=== PATIENT | female | born 1965 ===

== ENCOUNTER 2020-01-10 16:30 | Outpatient (REF) | payer OTHER, SELFPAY | END 2020-01-10 16:31 | disposition home or self-care (01) | LOC: HO.LAB 16:30 | PROVIDERS: PCP Internal Medicine; Visit Provider Internal Medicine | DX: Z20.828 Contact with and (suspected) exposure to other viral communicable diseases (principal) | CPT/HCPCS: 87635 ==

== ENCOUNTER 2024-03-05 08:57 | Outpatient (AMB) | payer OTHER, SELFPAY ==
[2024-03-05 09:11] VITALS: BP 122/70; PULSE 70; O2SAT 99; BMI 33.7
--- NOTE | 2024-03-05 09:11 | A.OFFVIS_ITS ---
Vital Signs 03/05/24 09:11 Height 5 ft 2 in Weight 184 lb 4.903 oz BMI 33.7 BP 122/70 Blood Pressure Location Lt brachial Position Sitting Pulse 70 Pulse Source Pulse Oximeter Pulse Oximetry (%) 99 Oxygen Delivery Method Room Air Intake Visit Reasons: arthritis/cm Intake Note: Patient is here to follow up on arthritis. Patient needs refill on Humira. Allergies morphine Allergy (Mild, Verified 03/05/24 09:16) Vomiting HPI HPI arthritis/cm: Details: She had prednisone course last visit in September or October lasting a month without benefit. She reports that she gained weight. She continues to have joint pain and swelling in her hands and wrists. Unable to hold things and open jars. She has limited range of motion in her right shoulder. Psychiatry started pregabalin with minimal benefit. She has been on combination with methotrexate and Humira for at least 3 years. [facility] were not received. [facility] Medical History (Updated 03/05/24 @ 10:03 by Sung Corrales MD) Rheumatoid arthritis delivery delivered CKD (chronic kidney disease) Arthritis Surgical History (Updated 03/05/24 @ 09:25 by Mikki Brewer CMA) History of tonsillectomy S/P cholecystectomy H/O thyroidectomy Family History (Updated 03/05/24 @ 09:27 by Mikki Brewer CMA) Father Kidney disease Mother Heart attack Advanced dementia Alzheimers disease Social History (Updated 03/05/24 @ 09:28 by Mikki Brewer CMA) Alcohol intake: current Alcohol intake frequency: holidays/special occasions only Patient Tobacco Use Status: Former Tobacco user Review of Systems Const All systems reviewed & are unremarkable except as noted in HPI and below Physical Exam Vital Signs: Last Vital Signs Pulse 70 03/05/24 09:11 BP 122/70 03/05/24 09:11 Pulse Ox 99 03/05/24 09:11 Oxygen Delivery Method Room Air 03/05/24 09:11 BMI result Body Mass Index 33.7 Const Other: General: Comfortable CVS: RRR Respiratory: clear to auscultation bilaterally. Good respiratory effort Skin: No lesions seen MSK: Tender to palpate bilateral MCPs with synovitis present. Volar subluxation of MCPs. Tender to palpate bilateral PIP knees. Right wrist is swollen and tender. Left wrist is tender on palpation. Unable to adhesive primer hands. Good range of motion of elbows. Right shoulder abduction is 120 degrees with limited internal and external rotation due to pain. Left shoulder range of motion is normal. Bilateral trochanteric bursa tenderness was found. Limited bilateral hip external rotation. Good knee flexion. No MTP tenderness on palpation. Assessment & Plan Assessment & Plan (1) Rheumatoid arthritis: Comment: Uncontrolled with double therapy with Humira and methotrexate. She failed course of prednisone. She had a side effect of increasing weight gain on prednisone. We discussed options for changing DMARD therapy. She has not been in any other DMARD therapy in the past besides Humira and methotrexate per patient. Discussed side effects, benefits and drug monitoring on Enbrel. Right shoulder pain is likely related to RA. We will obtain x-ray for further evaluation to rule out any other causes. She will return next week for right shoulder cortisone injection. Code(s): M06.9 - Rheumatoid arthritis, unspecified Category: Medical Plan: X-ray right shoulder ordered Right shoulder cortisone injection planned for next week Labs for disease and drug monitoring ordered Continue methotrexate 25 mg once weekly and folic acid 1 mg daily. After lab results are back, she will need prescription refills We will send Padma PA after lab results are back She will not continue Humira due to treatment failure Requesting medical records from [facility] Return to clinic in 3 months (2) Other mcfp (current) drug therapy: Code(s): Z79.899 - Other mcfp (current) drug therapy Category: Medical Plan: See above (3) Trochanteric bursitis of both hips: Comment: Uncontrolled pain. Code(s): M70.61 - Trochanteric bursitis, right hip; M70.62 - Trochanteric bursitis, left hip Category: Medical Plan: Can consider cortisone injection next visit Return to clinic in 1 week Orders: Orders Alanine Aminotransferase Today M06.9 - Rheumatoid arthritis, unspecified, Z79.899 - Other m[facility]p (current) drug therapy Aspartate Amino Transferase Today M06.9 - Rheumatoid arthritis, unspecified, Z79.899 - Other truck terminal manager (current) drug therapy C Reactive Protein Today M06.9 - Rheumatoid arthritis, unspecified, Z79.899 - Other truck terminal manager (current) drug therapy Cyclic Citrullinated Peptide Today M06.9 - Rheumatoid arthritis, unspecified, Z79.899 - Other [facility] (current) drug therapy Rheumatoid Factor Today M06.9 - Rheumatoid arthritis, unspecified, Z79.899 - Other [facility] (current) drug therapy T Spot TB Today M06.9 - Rheumatoid arthritis, unspecified, Z79.899 - Other [facility] (current) drug therapy Hepatitis B,C Profile Today M06.9 - Rheumatoid arthritis, unspecified, Z79.899 - Other truck terminal manager (current) drug therapy Erythrocyte Sedimentation Rate Today M06.9 - Rheumatoid arthritis, unspecified, Z79.899 - Other truck terminal manager (current) drug therapy Complete Blood Count Auto Diff Today M06.9 - Rheumatoid arthritis, unspecified, Z79.899 - Other [facility] (current) drug therapy Creatinine Today M06.9 - Rheumatoid arthritis, unspecified, Z79.899 - Other truck terminal manager (current) drug therapy XR shoulder RT min 2V Today M06.9 - Rheumatoid arthritis, unspecified, M25.511 - Pain in right shoulder Coding Level of Care Code Est Pt Level 4 (20233) Complex EM visit Add On G2211 Diagnoses Rheumatoid arthritis M06.9 Other truck terminal manager (current) drug therapy Z79.899 Trochanteric bursitis of both hips M70.61; M70.62
== END 2024-03-05 10:02 | disposition home or self-care (01) ==
PROVIDERS: PCP Internal Medicine; Visit Provider Internal Medicine Rheumatology
DX: M06.9 Rheumatoid arthritis, unspecified (principal); Z79.899 Other long term (current) drug therapy; M70.61 Trochanteric bursitis, right hip; M70.62 Trochanteric bursitis, left hip
CPT/HCPCS: 99214; G2211

== ENCOUNTER 2024-03-05 08:57 | Outpatient (REF) | payer OTHER, SELFPAY ==
[2024-03-05 11:46] LABS: MANUAL DIFF FLAG NO
[2024-03-05 12:43] LABS: Basophils Absolute Auto 0.1 X10*3/uL (0.0-0.2); Basophils Percent Auto 0.7 % (0-2); Eosinophils Absolute Auto 0.7 X10*3/uL (0.0-0.4); Eosinophils Percent Auto 9.4 % (0-4); Hematocrit 39.7 % (37.0-47.0); Hemoglobin 12.7 g/dl (12.0-16.0); Imm Gran Abs Auto 0.04 X10*3/uL (0.00-0.03); Imm Gran Pct Auto 0.6 % (0.0-0.4); Lymphocytes Absolute Auto 2.2 X10*3/uL (1.2-4.9); Lymphocytes Percent Auto 30.8 % (20-40); Mean Corpuscular Hemoglobin 32.2 pg (27.0-33.0); Mean Corpuscular Volume 100.8 fL (80.0-98.0); Mean Platelet Volume 11.7 fL (9.4-12.3); Monocytes Absolute Auto 0.5 X10*3/uL (0.1-1.2); Monocytes Percent Auto 6.5 % (2-11); Neutrophils Absolute Auto 3.8 x10*3/uL (2.0-8.3); Platelet Count 266 X10*3/uL (160-400); Red Blood Count 3.94 X10*6/uL (4.20-5.50); Red Cell Distribution Width 13.9 % (11.0-16.0); White Blood Count 7.3 X10*3/uL (4.8-10.8)
[2024-03-05 13:22] LABS: Alanine Aminotransferase 36 U/L (0-31); Aspartate Amino Transferase 34 U/L (5-31); C Reactive Protein 0.21 mg/dL (< or = 0.50); Estimated Glomerular Filt Rate 50
[2024-03-05 13:31] LABS: Erythrocyte Sedimentation Rate 28 MM/HR (0-20)
[2024-03-06 05:14] LABS: HBS Num1 0.17 mIU/mL (0-7.99); HBc Num1 0.15 S/CO (0.00-0.79); HBsAGNum1 0.42 S/CO (0.00-0.99); Hepatitis B Core Antibody Nonreactive (Nonreactive); Hepatitis B Surface Antigen Negative (Negative); ~HepC Num1 0.16 S/CO (0.00-0.79); ~Hepatitis B Surface Antibody NONREACTIVE (Nonreactive); ~Hepatitis C Antibody Nonreactive (Nonreactive)
[2024-03-07 08:33] LABS: Cyclic Citrullinated Peptide <16 UNITS
[2024-03-08 05:03] LABS: TS Negative Control Passed; TS Panel A 0; TS Panel B 0; TS Positive Control Passed; TSpotTB Negative (Negative)
== END 2024-03-05 08:58 | disposition home or self-care (01) ==
LOC: HO.XRAY 08:57
PROVIDERS: PCP Internal Medicine; Visit Provider Internal Medicine Rheumatology
DX: M06.9 Rheumatoid arthritis, unspecified (principal); M25.511 Pain in right shoulder; Z79.899 Other long term (current) drug therapy
CPT/HCPCS: 36415; 73030; 82565; 84450; 84460; 85025; 85652; 86140; 86200; 86431; 86481; 86704; 86706; 86803; 87340; 99212

== ENCOUNTER 2024-03-13 07:57 | Outpatient (AMB) | payer OTHER, SELFPAY ==
--- NOTE | 2024-03-13 08:03 | A.OFFVIS_ITS ---
Vital Signs 03/13/24 08:05 Height 5 ft 2 in Weight 187 lb 6.287 oz BMI 34.3 BP 120/70 Blood Pressure Location Lt brachial Position Sitting Pulse 75 Pulse Source Pulse Oximeter Pulse Oximetry (%) 98 Oxygen Delivery Method Room Air Intake Visit Reasons: Follow Up 1 week/CM Intake Note: Patient presents for follow up for injection today. Allergies morphine Allergy (Mild, Verified 03/13/24 08:06) Vomiting HPI HPI Follow Up 1 week/CM: Details: She continues to have right shoulder pain and bilateral hip pain. Right hip pain is worse than (. She is having a difficulty time lifting her arm and functioning with it. [facility] Medical History (Updated 03/13/24 @ 20:56 by Sung Corrales MD) Rheumatoid arthritis delivery delivered CKD (chronic kidney disease) Arthritis Surgical History (Updated 03/05/24 @ 09:25 by Mikki Brewer CMA) History of tonsillectomy S/P cholecystectomy H/O thyroidectomy Family History (Updated 03/05/24 @ 09:27 by Mikki Brewer CMA) Father Kidney disease Mother Heart attack Advanced dementia Alzheimers disease Social History (Updated 03/05/24 @ 09:28 by Mikki Brewer CMA) Alcohol intake: current Alcohol intake frequency: holidays/special occasions only Patient Tobacco Use Status: Former Tobacco user Physical Exam Vital Signs: Last Vital Signs Pulse 75 03/13/24 08:05 BP 120/70 03/13/24 08:05 Pulse Ox 98 03/13/24 08:05 Oxygen Delivery Method Room Air 03/13/24 08:05 BMI result Body Mass Index 34.3 Const Other: General: Comfortable Skin: No lesions seen MSK: Right shoulder abduction is 120 degrees with limited internal and external rotation due to pain. Left shoulder range of motion is normal. Bilateral trochanteric bursa tenderness was found. Limited bilateral hip external rotation. Office Procedures AMB Joint Injection/Aspiration Joint Injection/Aspiration Primary Site: right shoulder Prep: site was prepped using aseptic technique Injected: 40 mg of, Kenalog, with 1 mL of and 1% plain lidocaine Procedure: The patient tolerated the procedure well Coding 27238 - Large joint Additional procedure code (CPT) needed (Modifier for 2 procedures needed.) AMB Joint Injection/Aspiration Joint Injection/Aspiration Details: Right trochanteric bursa Prep: site was prepped using aseptic technique Injected: 40 mg of, Kenalog, with 1 mL of and 1% plain lidocaine Procedure: The patient tolerated the procedure well Coding 52065 - Large joint Additional procedure code (CPT) needed (Modifier for 2 procedures needed) Office Meds Kenalog 40 mg/mL suspension for injection Performing Provider: Sung Corrales MD Performing Location: [facility] Administered by: Sung Corrales MD on 03/13/24 20:39 Dose Route Admin Location Dispensed Lot Number Expiration Date [facility] [place] Paradichlorobenzene Machine Operator 40 mg intra-articular 1 mL AP [id number] [employer] lidocaine (PF) 10 mg/mL (1 %) injection solution Performing Provider: Sung Corrales MD Performing Location: [facility] Administered by: Sung Corrales MD on 03/13/24 20:39 Dose Route Admin Location Dispensed Lot Number Expiration Date [facility] [place] Paradichlorobenzene Machine Operator 10 mg Infiltration 2 mL [id number] [facility] Kenalog 40 mg/mL suspension for injection Performing Provider: Sung Corrales MD Performing Location: [facility] Administered by: Sung Corrales MD on 03/13/24 20:42 Dose Route Admin Location Dispensed Lot Number Expiration Date [facility] [place] Paradichlorobenzene Machine Operator 40 mg intrabursal 1 mL AP [id number] [employer] lidocaine (PF) 10 mg/mL (1 %) injection solution Performing Provider: Sung Corrales MD Performing Location: [facility] [place] Administered by: Sung Corrales MD on 03/13/24 20:42 Dose Route Admin Location Dispensed Lot Number Expiration Date [facility] [place] Paradichlorobenzene Machine Operator 10 mg Infiltration 2 mL [id number] [facility] Assessment & Plan Assessment & Plan (1) Shoulder pain, right: Comment: Likely due to RA flare. X-ray results are not available. Code(s): M25.511 - Pain in right shoulder Category: Medical Qualifiers: Chronicity: chronic Qualified Code(s): M25.511 - Pain in right shou lder; G89.29 - Other chronic pain Plan: Patient received right shoulder cortisone injection this visit Return to clinic in 3 months (2) Trochanteric bursitis of both hips: Comment: Uncontrolled pain. Right trochanteric bursa pain is greater than left Code(s): M70.61 - Trochanteric bursitis, right hip; M70.62 - Trochanteric bursitis, left hip Category: Medical Plan: She received right trochanteric bursa cortisone injection this visit Return to clinic in 3 months (3) Rheumatoid arthritis: Comment: Seropositive. Rheumatoid factor 36. She has been on methotrexate since 01/20/2022 till present. In 2013 she did well on hydroxychloroquine, methotrexate and Humira. She has had treatment failure after reintroducing Humira. Rheumatoid arthritis is uncontrolled at this time with Humira and methotrexate. She failed course of prednisone. She had a side effect of i ncreasing weight gain on prednisone. We discussed options for changing DMARD therapy. Discussed side effects, benefits and drug monitoring on Padma. Right shoulder pain is likely related to RA. Recent labs revealed mild transaminitis in setting of Humira use when compared to prior labs. She has discontinued Humira. Code(s): M06.9 - Rheumatoid arthritis, unspecified Category: Medical Plan: Right shoulder cortisone injection today Labs for disease and drug monitoring ordered last visit Continue methotrexate 25 mg once weekly and folic acid 1 mg daily. We will send Padma MIRANDA after lab results are back. Patient is having liver panel checked March 19. She will not continue Humira Return to clinic in 3 months (4) Other alf (current) drug therapy: Code(s): Z79.899 - Other alf (current) drug therapy Category: Medical Plan: See above Orders: Orders AMB Joint Injection/Aspiration Today M25.511 - Pain in right shoulder AMB Joint Injection/Aspiration Today M70.61 - Trochanteric bursitis, right hip, M70.62 - Trochanteric bursitis, left hip Medications: New folic acid 1 mg PO DAILY 90 tabs 3RF Changed From methotrexate sodium 10 pills each week, every . 2.5 mg PO QWEEK To methotrexate sodium 10 pills each week, every . Do labs on March 19 to check liver function at [facility]. 25 mg (10 x 2.5 mg) PO QWEEK 40 tabs 0RF Coding Level of Care Code Est Pt Level 3 (78897) Complex EM visit Add On G2211 Diagnoses Chronic right shoulder pain M25.511; G89.29 Chronicity: chronic Trochanteric bursitis of both hips M70.61; M70.62 Rheumatoid arthritis M06.9 Other lobsterman (current) drug therapy Z79.899 CPT Codes Coding - 54106 Large joint: 73931 - Large joint ([id number]) Coding - 02443 Large joint: 12421 - Large joint ([id number])
[2024-03-13 08:05] VITALS: BP 120/70; PULSE 75; O2SAT 98; BMI 34.3
== END 2024-03-13 08:48 | disposition home or self-care (01) ==
PROVIDERS: PCP Internal Medicine; Visit Provider Internal Medicine Rheumatology
DX: M25.511 Pain in right shoulder (principal); G89.29 Other chronic pain; M70.61 Trochanteric bursitis, right hip; M70.62 Trochanteric bursitis, left hip; M06.9 Rheumatoid arthritis, unspecified; Z79.899 Other long term (current) drug therapy
CPT/HCPCS: 20610; 99213; G2211

== ENCOUNTER → 2024-03-13 07:57 | Outpatient (BNVA) | payer OTHER, SELFPAY | PROVIDERS: PCP Internal Medicine; Visit Provider Internal Medicine Rheumatology | DX: M25.511 Pain in right shoulder (principal); M70.61 Trochanteric bursitis, right hip; M70.62 Trochanteric bursitis, left hip; M06.9 Rheumatoid arthritis, unspecified; G89.29 Other chronic pain; Z79.899 Other long term (current) drug therapy | CPT/HCPCS: 20610; 99212; J2003; J3300 ==

== ENCOUNTER → 2024-06-04 09:34 | Outpatient (BNVA) | payer OTHER, SELFPAY | PROVIDERS: PCP Internal Medicine | DX: Z76.89 Persons encountering health services in other specified circumstances (principal) ==

== ENCOUNTER 2024-06-05 09:25 | Outpatient (REF) | payer OTHER, SELFPAY ==
--- OUTSIDE RECORDS SUMMARY | 2024-06-05 13:25 | XMS_ITS | Clinical Summary ---
Author Organization [facility] Address [address] [place] [address] Phone Care Team Providers Care Lubrication Worker Name Role Phone Sabas Zepeda MD Primary [...] 0 Refills, Maintenance, 11/02/23 2:42:00 PM EDT, [facility]/pharmacy #[id number], 158, cm, 11/02/23 12:56:00 EDT, Height, [...] 05/24/2024 10:40 AM EST Consult Gastroenterology - [place] [address] [facility] 175 [facility] [address] [place] [phone] Maverick Shaffer PA Heartburn (Primary Dx); Gastroesophageal reflux disease without esophagitis; Atypical chest pain; Constipation, unspecified constipation type 04/29/2024 5:31 PM EST - 04/29/2024 8:24 PM EST Emergency [facility] Emergency [address] [place] [address] Valdez Starks MD Chest wall [...] Surgery Date Site/Laterality Comments CHOLECYSTECTOMY 1996 PROCEDURE: [place] CHOLECYSTECTOMY TONSILLECTOMY PROCEDURE: HISTORICAL TONSILLECTOMY SECTION PROCEDURE: HISTORICAL ; COMMENT: x3 TUBAL LIGATION PROCEDURE: HISTORICAL TUBAL LIGATION COLONOSCOPY 10/30/2015 PROCEDURE: HISTORICAL COLONOSCOPY; COMMENT: adenoma; repeat in 5 yrs OTHER SURGICAL HISTORY 10/25/2018 Left PROCEDURE: BUNION SURGERY,REMOVE JOINT/IMPLANT; COMMENT: left foot varghese karen bunionectomy OTHER SURGICAL HISTORY 12/04/2020 PROCEDURE: [place] THYROIDECTOMY TOTAL/COMPLETE Medical History Medical History Date [...] Office Visit Nephrology - [facility] [address] [place] [phone] Seng Fernandez MD [address] [place] [address] Health Maintenance Due Date Last Done Comments [...] LAB MICROBIOLOGY METHOD 04/29/2024 8:17 PM EST [facility] Influenza A PCR Not Detected Not Detected LAB MICROBIOLOGY METHOD 04/29/2024 8:17 PM EST [facility] Influenza B PCR Not Detected Not Detected LAB MICROBIOLOGY METHOD 04/29/2024 8:[address] [facility] Coronavirus 229E Not Detected Not Detected LAB MICROBIOLOGY METHOD 04/29/2024 8:17 PM EST [facility] Coronavirus HKU1 Not Detected Not Detected LAB MICROBIOLOGY METHOD 04/29/2024 8:[address] [facility] Coronavirus OC43 Not Detected Not Detected LAB MICROBIOLOGY METHOD 04/29/2024 8:[address] [facility] Coronavirus NL63 Not Detected Not Detected LAB MICROBIOLOGY METHOD 04/29/2024 8:[address] [facility] Parainfluenza Virus 1 Not Detected Not Detected LAB MICROBIOLOGY METHOD 04/29/2024 8:[address] [facility] Parainfluenza Virus 2 Not Detected Not Detected LAB MICROBIOLOGY METHOD 04/29/2024 8:[address] [facility] Parainfluenza Virus 3 Not Detected Not Detected LAB MICROBIOLOGY METHOD 04/29/2024 8:[address] [facility] Parainfluenza Virus 4 Not Detected Not Detected LAB MICROBIOLOGY METHOD 04/29/2024 8:[address] [facility] RSV PCR Not Detected Not Detected LAB MICROBIOLOGY METHOD 04/29/2024 8:[address] [facility] Human Metapneumovirus A and B Not Detected Not Detected LAB MICROBIOLOGY METHOD 04/29/2024 8:[address] [facility] Rhinovirus/Entero virus Not Detected Not Detected LAB MICROBIOLOGY METHOD 04/29/2024 8:[address] [facility] Bordetella pertussis Not Detected Not Detected LAB MICROBIOLOGY METHOD 04/29/2024 8:[address] [facility] Bordetella parapertussis Not Detected Not Detected LAB MICROBIOLOGY METHOD 04/29/2024 8:[address] [facility] Mycoplasma pneumo by PCR Not Detected Not Detected LAB MICROBIOLOGY METHOD 04/29/2024 8:[address] [facility] Chlamydia pneumoniae Not Detected Not Detected LAB MICROBIOLOGY METHOD 04/29/2024 8:17 PM EST [facility] SARS COV-2 Not Detected Not Detected LAB MICROBIOLOGY METHOD 04/29/2024 8:17 PM EST [facility] Swab Nasopharyngeal structure / Unknown Non-blood Collection / Unknown 04/29/2024 6:08 PM EST 04/29/2024 7:00 PM EST [facility] - 04/29/2024 8:17 PM EST Testing was performed using the [employer] Respiratory Pathogen PCR Assay. All results must [...] detection. Valdez Starks MD LAB MICROBIOLOGY - [facility] Final Result [facility] [address] [place] [address], [place] [phone] * Troponin I high sensitivity (04/29/2024 3:18 PM EST) Only the most recent of2 resultswithin the time period is included. Pathologist [facility] High Sensitivity Troponin I 4 <=54 ng/L LAB CHEMISTRY METHOD 04/29/2024 3:52 PM EST [facility] Blood Venous blood specimen / Unknown Venipuncture / Unknown 04/29/2024 3:18 PM EST 04/29/2024 3:23 PM EST [facility] - 04/29/2024 3:52 PM EST High levels of biotin in samples may falsely decrease hsTroponin values. ??Use caution when interpreting hsTroponin results in patients taking biotin who exhibit renal impairment (eGFR <60) or in patients taking more than 20 mg/day of biotin. Natalia Belle DO LAB BLOOD ORDERABLES Karmen l Result [facility] [address] [place] [address], [place] [phone] * XR Chest 2 Views (04/29/2024 2:51 PM EST) Anatomical Region Laterality Modality Body Radiographic Naomie ging 04/29/2024 3:04 PM EST Impressions 04/29/2024 3:05 PM EST Impression: No active pulmonary process identified. No significant change. Telerad PA ([id number]) -------- FINAL REPORT -------- Dictated By: Darlin Casey Dictated Date: 04/29/2024 15:04 ET Assigned Physician: Darlin Casey Reviewed and Electronically Signed By: Darlin Casey Signed Date: 04/29/2024 15:05 ET Workstation ID: [id number] Transcribed By: Self Edit Transcribed Date: 04/29/2024 [...] process identified. No significant change. Telerad PA ([id number]) -------- FINAL REPORT -------- Dictated By: Darlin Casey Dictated Date: 04/29/2024 15:04 ET Assigned Physician: Darlin Casey Reviewed and Electronically Signed By: Darlin Casey Signed Date: 04/29/2024 15:05 ET Workstation ID: [id number] Transcribed By: Self Edit Transcribed Date: 04/29/2024 15:04 ET us Natalia Belle DO IMG XR PROCEDURES Final R esult * (ABNORMAL) CBC auto differential (04/29/2024 12:11 PM EST) Pathologist [facility] WBC 7.5 4.8 - 10.8 K/mcL LAB HEMETOLOGY METHOD 04/29/2024 12:[address] [facility] RBC 3.80 3.80 - 4.80 M/mcL LAB HEMETOLOGY METHOD 04/29/2024 12:[address] [facility] Hemoglobin 12.4 11.5 - 16.0 g/dL LAB HEMETOLOGY METHOD 04/29/2024 12:[address] [facility] Hematocrit 38.9 35.0 - 47.0 % LAB HEMETOLOGY METHOD 04/29/2024 12:[address] [facility] MCV 101.3(H) 79.0 - 98.0 FL LAB HEMETOLOGY METHOD 04/29/2024 12:[address] [facility] MCH 32.3(H) 27.0 - 32.0 pcg LAB HEMETOLOGY METHOD 04/29/2024 12:[address] [facility] MCHC 31.9(L) 32.0 - 37.0 g/dL LAB HEMETOLOGY METHOD 04/29/2024 12:[address] [facility] RDW 14.5 11.0 - 15.0 % LAB HEMETOLOGY METHOD 04/29/2024 12:[address] [facility] Platelets 233 130 - 400 K/mcL LAB HEMETOLOGY METHOD 04/29/2024 12:56 PM EST [facility] MPV 12.4(H) 7.0 - 11.0 FL LAB HEMETOLOGY METHOD 04/29/2024 12:[address] [facility] NRBC 0.0 <1.0 % LAB HEMETOLOGY METHOD 04/29/2024 12:[address] [facility] NRBC Absolute 0.00 <0.10 K/mcL LAB HEMETOLOGY METHOD 04/29/2024 12:[address] [facility] Neutrophils Relative 64.9 % LAB HEMETOLOGY METHOD 04/29/2024 12:[address] [facility] Lymphocytes Relative 25.5 % LAB HEMETOLOGY METHOD 04/29/2024 12:[address] [facility] Monocytes Relative 6.4 % LAB HEMETOLOGY METHOD 04/29/2024 12:[address] [facility] Eosinophils Relative 2.3 % LAB HEMETOLOGY METHOD 04/29/2024 12:[address] [facility] Basophils Relative 0.5 % LAB HEMETOLOGY METHOD 04/29/2024 12:[address] [facility] Immature Granulocytes Relative 0.4 % LAB HEMETOLOGY METHOD 04/29/2024 12:[address] [facility] Neutrophils Absolute 4.89 1.50 - 7.00 K/mcL LAB HEMETOLOGY METHOD 04/29/2024 12:[address] [facility] Lymphocytes Absolute 1.92 1.00 - 5.00 K/mcL LAB HEMETOLOGY METHOD 04/29/2024 12:[address] [facility] Monocytes Absolute 0.48 0.20 - 1.00 K/mcL LAB HEMETOLOGY METHOD 04/29/2024 12:[address] [facility] Eosinophils Absolute 0.17 0.00 - 0.50 K/mcL LAB HEMETOLOGY METHOD 04/29/2024 12:[address] [facility] Basophils Absolute 0.04 0.00 - 0.20 K/[facility] LAB HEMETOLOGY METHOD 04/29/2024 12:56 PM EST [facility] Immature Granulocytes Absolute 0.03 0.00 - 0.03 K/[facility] LAB HEMETOLOGY METHOD 04/29/2024 12:56 PM EST [facility] Blood Venous blood specimen / Unknown Venipuncture / Unknown 04/29/2024 12:11 PM EST 04/29/2024 12:42 PM EST us Natalia Belle LAB BLOOD ORDERABLES Karmen l Result [facility] [address] [place] [address], [place] [phone] * B-type natriuretic peptide (04/29/2024 12:11 PM EST) BNP 19 <=100 pcg/mL LAB CHEMISTRY METHOD 04/29/2024 1:36 PM EST [facility] Blood Venous blood specimen / Unknown Venipuncture / Unknown 04/29/2024 12:11 PM EST 04/29/2024 12:41 PM EST us Natalia Belle LAB BLOOD ORDERABLES Karmen l Result [facility] [address] [place] [address], [place] [phone] * Magnesium (04/29/2024 12:11 PM EST) Magnesium 2.0 1.9 - 2.6 mg/dL LAB CHEMISTRY METHOD 04/29/2024 1:13 PM EST [facility] Blood Venous blood specimen / Unknown Venipuncture / Unknown 04/29/2024 12:11 PM EST 04/29/2024 12:42 PM EST us Natalia Belle LAB BLOOD ORDERABLES Karmen l Result Performing Organization Address City/[facility]/ZIP Co de Phone Number [facility] [address] [place] [address], [place] [phone] * Lipase (04/29/2024 12:11 PM EST) Pathologist [facility] Lipase 49 13 - 75 unit/L LAB CHEMISTRY METHOD 04/29/2024 1:[address] [facility] Blood Venous blood specimen / Unknown Venipuncture / Unknown 04/29/2024 12:11 PM EST 04/29/2024 12:42 PM EST [facility] LAB BLOOD ORDERABLES Karmen l Result Performing Organization Address [facility]/ZIP Co de Phone Number [facility] [address] [place] [address], [place] [phone] * Comprehensive metabolic panel (04/29/2024 12:11 PM EST) [facility] Sodium 139 133 - 145 mmol/L LAB CHEMISTRY METHOD 04/29/2024 1:[address] [facility] Potassium 4.6 3.5 - 5.5 mmol/L LAB CHEMISTRY METHOD 04/29/2024 1:[address] [facility] Chloride 107 96 - 110 mmol/L LAB CHEMISTRY METHOD 04/29/2024 1:[address] [facility] CO2 28 21 - 32 mmol/L LAB CHEMISTRY METHOD 04/29/2024 1:[address] [facility] Anion Gap 4 3 - 11 LAB CHEMISTRY METHOD 04/29/2024 1:[address] [facility] Glucose 97 70 - 100 mg/dL LAB CHEMISTRY METHOD 04/29/2024 1:[address] [facility] BUN 16 5 - 25 mg/dL LAB CHEMISTRY METHOD 04/29/2024 1:[address] [facility] Creatinine 1.08 0.50 - 1.10 mg/dL LAB CHEMISTRY METHOD 04/29/2024 1:[address] [facility] eGFR 60 >=60 mL/min/1. 73m2 LAB CHEMISTRY METHOD 04/29/2024 1:[address] [facility] Comment:Calculation based on the??Chronic Kidney Disease Epidemiology Collaboration (CKD-EPI) equation refit??without adjustment for race. BUN/Creatinine Ratio 14.8 LAB CHEMISTRY METHOD 04/29/2024 1:[address] [facility] Calcium 9.9 8.5 - 10.5 mg/dL LAB CHEMISTRY METHOD 04/29/2024 1:[address] [facility] AST (SGOT) 29 10 - 42 unit/L LAB CHEMISTRY METHOD 04/29/2024 1:[address] [facility] ALT (SGPT) 38 10 - 60 unit/L LAB CHEMISTRY METHOD 04/29/2024 1:[address] [facility] Alkaline Phosphatase 63 42 - 121 unit/L LAB CHEMISTRY METHOD 04/29/2024 1:[address] [facility] Total Protein 7.2 6.0 - 8.0 g/dL LAB CHEMISTRY METHOD 04/29/2024 1:[address] [facility] Albumin 4.0 3.2 - 5.0 g/dL LAB CHEMISTRY METHOD 04/29/2024 1:[address] [facility] Total Bilirubin 0.4 0.0 - 1.4 mg/dL LAB CHEMISTRY METHOD 04/29/2024 1:[address] [facility] Blood Venous blood specimen / Unknown Venipuncture / Unknown 04/29/2024 12:11 PM EST 04/29/2024 12:42 PM EST us Natalia Belle DO LAB BLOOD ORDERABLES Karmen l Result [facility] [address] [place] [address], [place] [phone] * ECG 12 lead (04/29/2024 12:00 PM EST) Ventricular Rate ECG 61 BPM GEMUSE Atrial Rate 61 BPM GEMUSE P-R Interval 134 ms GEMUSE QRS Duration 68 ms GEMUSE Q-T Interval 412 ms GEMUSE QTc 414 ms GEMUSE P Wave [place] 63 degrees GEMUSE R [place] 35 degrees GEMUSE T [place] 42 degrees GEMUSE ECG Interpretation Normal sinus [...] PROCEDURE S Final Result * Colonoscopy (06/15/2021) [facility] Colonoscopy No interpretation , abstracted Anatomical Region Laterality Modality Other Result [facility] Provider HEALTH MAINTENANCE Final Result * Lipid panel (06/14/2017) [facility] LDL/HDL Ratio 2 0 - 4 Triglycerides 109 0 - 150 mg/dL Cholesterol 172 0 - 200 mg/dL HDL 95 >=40 mg/dL LDL Cholesterol 55 0 - 100 mg/dL Blood Venous blood specimen / Unknown Result [facility] Historical Provider LAB BLOOD ORDERABLES Karmen l Result * Hepatitis C Screening (01/17/2017) [facility] Hepatitis C Screening Abstracted Result [facility] Provider HEALTH MAINTENANCE Final Result * Cervical Cancer Screening: HPV (12/01/2014) [facility] Cervical Cancer Screening: HPV Negative, Abstracted Result [facility] Provider HEALTH MAINTENANCE Final Result * HIV Screening (11/18/2014) [facility] HIV Screening Abstracted [facility] Provider HEALTH MAINTENANCE Final Result from Last 3 Months or Most Recently Relevant to Health Maintenance Insurance [employer] Member Subscriber Plan / Payer (Ef fective 2023-Present) Name:Roque, Angle Relation to Subscriber:Self Name:Angle Roque Payer ID:[id number] Group ID:[id number] Type:Not on file Address: [place] [address] [address] Care Teams Lubrication Worker Relationship Specialty Start Date End Date Sabas Zepeda MD [address] [place] [id number] PCP - General Internal Medicine 04/29/24
--- OUTSIDE RECORDS SUMMARY | 2024-06-05 13:25 | XMS_ITS | Encounter Summary ---
Author Organization [facility] Address [address] [place] [address] Care Team Providers Care Legal Executive Assistant Name Role Phone Sabas Zepeda MD Primary Care Provider [phone] Reason for Visit * Reason Comments GERD Constipation Encounter Details Date Type Department Care Team (Late st Contact Info) Description 05/24/2024 10:40 AM EST Consult Gastroenterology - [place] [address] [place] [phone] Maverick Shaffer PA [address] [place] [address] Heartburn (Primary Dx); Gastroesophageal reflux disease without [...] through Care Everywhere. * Chest Pain: Musculoskeletal (Bhutanese) * Constipation (Bhutanese) * Acid-Reducing Medicines: General Info (Bhutanese) * GERD (Bhutanese) * Dyspepsia (Bhutanese) documented in this encounter Ordered Prescriptions Prescription [...] process identified. No significant change. Telerad PA ([id number]) -------- FINAL REPORT -------- Dictated By: Darlin Casey Dictated Date: 04/29/2024 15:04 ET Assigned Physician: Darlin Casey Reviewed and Electronically Signed By: Darlin Casey Signed Date: 04/29/2024 15:05 ET Workstation ID: [id number] Transcribed By: Self Edit Transcribed Date: 04/29/2024 [...] the colonoscopy in 2026. She has tried [id number] medications which are minimally helpful and have [...] Visit Nephrology - [place] [address] [place] [address] Seng Fernandez MD [address] [place] [address] documented as of this encounter Visit Diagnoses [...] 11/02/2023 added in this encounter Care Teams Legal Executive Assistant Relationship Specialty Start Date End Date Sabas Zepeda MD [address] [place] [address] PCP - General Internal Medicine 04/29/24 documented as of this encounter
[2024-06-05 17:55] LABS: MANUAL DIFF FLAG NO
[2024-06-05 18:20] LABS: Alanine Aminotransferase 35 U/L (0-31); Albumin Level 4.2 g/dL (3.5-5.0); Aspartate Amino Transferase 30 U/L (5-31); Bilirubin Direct 0.1 mg/dL (0.0-0.5); Bilirubin Total 0.6 mg/dL (0.0-1.0); C Reactive Protein 0.11 mg/dL (< or = 0.50); Estimated Glomerular Filt Rate 56; Total Protein 7.5 g/dL (6.5-8.0)
[2024-06-05 18:42] LABS: Alkaline Phosphatase 60 U/L (39-117)
[2024-06-05 18:45] LABS: Basophils Absolute Auto 0.1 X10*3/uL (0.0-0.2); Basophils Percent Auto 0.7 % (0-2); Eosinophils Absolute Auto 0.4 X10*3/uL (0.0-0.4); Eosinophils Percent Auto 6.2 % (0-4); Hematocrit 39.5 % (37.0-47.0); Hemoglobin 12.5 g/dl (12.0-16.0); Imm Gran Abs Auto 0.02 X10*3/uL (0.00-0.03); Imm Gran Pct Auto 0.3 % (0.0-0.4); Lymphocytes Absolute Auto 2.4 X10*3/uL (1.2-4.9); Lymphocytes Percent Auto 34.2 % (20-40); Mean Corpuscular HGB Conc 31.6 g/dl (31.0-35.0); Mean Corpuscular Hemoglobin 31.4 pg (27.0-33.0); Mean Corpuscular Volume 99.2 fL (80.0-98.0); Mean Platelet Volume 12.6 fL (9.4-12.3); Monocytes Absolute Auto 0.4 X10*3/uL (0.1-1.2); Monocytes Percent Auto 6.2 % (2-11); Neutrophils Absolute Auto 3.7 x10*3/uL (2.0-8.3); Neutrophils Percent Auto 52.4 % (45-73); Platelet Count 221 X10*3/uL (160-400); Red Blood Count 3.98 X10*6/uL (4.20-5.50); Red Cell Distribution Width 13.5 % (11.0-16.0); White Blood Count 7.1 X10*3/uL (4.8-10.8)
== END 2024-06-05 09:26 | disposition home or self-care (01) ==
LOC: HO.HKASLDS 09:25
PROVIDERS: PCP Internal Medicine; Visit Provider Internal Medicine Rheumatology
DX: M05.79 Rheumatoid arthritis with rheumatoid factor of multiple sites without organ or systems involvement (principal); M19.011 Primary osteoarthritis, right shoulder; R74.01 Elevation of levels of liver transaminase levels; Z79.60 Long term (current) use of unspecified immunomodulators and immunosuppressants; Z79.899 Other long term (current) drug therapy
CPT/HCPCS: 36415; 80076; 82565; 85025; 86140; 99212

== ENCOUNTER 2024-06-05 09:25 | Outpatient (AMB) | payer OTHER, SELFPAY ==
--- NOTE | 2024-06-05 10:01 | A.OFFVIS_ITS ---
Vital Signs 06/05/24 10:02 Height 5 ft 2 in Weight 192 lb 3.889 oz BMI 35.2 BP 110/78 Blood Pressure Location Lt brachial Position Sitting Pulse 57 Pulse Source Pulse Oximeter Pulse Oximetry (%) 98 Oxygen Delivery Method Room Air Intake Visit Reasons: Follow Up 3mo Intake Note: Patient is here to follow up on arthritis. Allergies morphine Allergy (Mild, Verified 06/05/24 10:03) Vomiting HPI HPI Follow Up 3mo: Details: She had Enbrel 1st injection yesterday. At home she developed 10/10 abdominal pain, which kept her up at night. At this time her abdominal pain is 5/10. She has not self medicated. She localizes pain to the epigastrium. Denies fever, dyspnea, swelling of tongue, throat closing symptoms, rash and worsening joint pain. She continues to have right shoulder pain. Cortisone injection did not alleviate right shoulder pain. Pain occurs with activity. She continues to have swelling in her hands. She goes to the gym regularly as she wants to try to maintain an exercise routine. [facility] Medical History (Updated 06/08/24 @ 13:19 by Sung Corrales MD) Rheumatoid arthritis delivery delivered CKD (chronic kidney disease) Arthritis Surgical History (Updated 03/05/24 @ 09:25 by Mikki Brewer CMA) History of tonsillectomy S/P cholecystectomy H/O thyroidectomy Family History (Updated 03/05/24 @ 09:27 by Mikki Brewer CMA) Father Kidney disease Mother Heart attack Advanced dementia Alzheimers disease Social History (Updated 03/05/24 @ 09:28 by Mikki Brewer CMA) Alcohol intake: current Alcohol intake frequency: holidays/special occasions only Patient Tobacco Use Status: Former Tobacco user Review of Systems Const All systems reviewed & are unremarkable except as noted in HPI and below Physical Exam Vital Signs: Last Vital Signs Pulse 57 06/05/24 10:02 BP 110/78 06/05/24 10:02 Pulse Ox 98 06/05/24 10:02 Oxygen Delivery Method Room Air 06/05/24 10:02 BMI result Body Mass Index 35.2 Const Other: General: Comfortable Skin: No lesions seen MSK: Localized tenderness to right anterior shoulder. Right shoulder abduction is 160 degrees with improved internal and external rotation. Left shoulder range of motion is normal. Bilateral trochanteric bursa tenderness was found. Limited bilateral hip external rotation. Knee flexion 90 degrees bilateral knees. Synovitis 2-4th MCP with tenderness on palpation, tenderness of right hand PIP with synovitis right 2nd PIP. Synovitis left 2nd to 3rd MCP with tenderness on palpation. Tender wrists, shoulders, ankles and MTPs. Assessment & Plan Assessment & Plan (1) Rheumatoid arthritis: Comment: Rheumatoid arthritis is uncontrolled at this time. First injection of Enbrel has caused side effect of abdominal pain. We discussed risk of possible worsening symptoms if she has another injection of Enbrel including anaphylaxis. At this time I do not recommend proceeding with Enbrel. We discussed options for DMARD therapy. I discussed treatment with Orencia, side effects, benefits and drug monitoring. Rheumatology history: Seropositive (Rheumatoid factor 36). She has been on methotrexate since 01/20/2022 till present. In 2013 she did well on hydroxychloroquine, methotrexate and Humira. She has had treatment failure after reintroducing Humira. She failed course of prednisone and reports that she had side effect of weight gain. Enbrel caused severe abdominal pain 06/04/2024. Code(s): M06.9 - Rheumatoid arthritis, unspecified Category: Medical Qualifiers: Rheumatoid arthritis location: multiple sites Rheumatoid factor presence: with rheumatoid factor Qualified Code(s): M05.79 - Rheumatoid arthritis with rheumatoid factor of multiple sites without organ or systems involvement Plan: Labs for disease and drug monitoring ordered after drug reaction Continue methotrexate 25 mg once weekly and folic acid 1 mg daily. After lab results are back, I will start PA process for Orencia IV induction (750mg week 0, 2, 4) followed by maintenance with Orencia subcutaneous injection (125mg SC 24 hours after completing induction dose, followed by 125 mg once weekly thereafter) for maximal benefit from Orencia treatment as patient has had uncontrolled inflammatory arthritis for a very long time. She will need to be scheduled for nurse teaching visit 24 hours after last induction dose for nurse teaching and administration of 1st SC dose in office. She will need labs for drug monitoring 4 weeks after starting Orencia: CBC, creatinine, AST, ALT Return to clinic in 3 months (2) Arthritis of right acromioclavicular joint: Comment: Chronic right shoulder pain with range of motion. AC joint arthritis is contributing to right shoulder pain as revealed on x-ray. She did not have any benefit with right glenohumeral joint intra-articular cortisone injection from last visit. We discussed conservative management. Code(s): M19.011 - Primary osteoarthritis, right shoulder Category: Medical Plan: PT ordered Return to clinic in 3 months (3) Other rodent exterminator (current) drug therapy: Code(s): Z79.899 - Other usp (current) drug therapy Category: Medical Plan: See above Orders: Orders PT Evaluation and Treatment 06/05/24 M19.011 - Primary osteoarthritis, right shoulder Alanine Aminotransferase 06/05/24 Z79.60 - nursing home (current) use of unspecified immunomodulators and immunosuppressants Aspartate Amino Transferase 06/05/24 Z79.60 - nursing home (current) use of unspecified immunomodulators and immunosuppressants Complete Blood Count Auto Diff 06/05/24 Z79.60 - intermediate manager (current) use of unspecified immunomodulators and immunosuppressants Creatinine 06/05/24 Z79.60 - nursing home (current) use of unspecified immunomodulators and immunosuppressants C Reactive Protein 06/05/24 Z79.899 - Other rodent exterminator (current) drug therapy Coding Level of Care Code Est Pt Level 4 (74672) Complex EM visit Add On G2211 Diagnoses Rheumatoid arthritis involving multiple sites with positive rheumatoid factor M05.79 Rheumatoid arthritis location: multiple sites Rheumatoid factor presence: with rheumatoid factor Arthritis of right acromioclavicular joint M19.011 Other usp (current) drug therapy Z79.899
[2024-06-05 10:02] VITALS: BP 110/78; PULSE 57; O2SAT 98; BMI 35.2
--- OUTSIDE RECORDS SUMMARY | 2024-06-05 10:33 | XMS_ITS | Clinical Summary ---
Author Organization [facility] Address [address] [place] [address] Phone Care Team Providers [facility] Former Name Role Phone Sabas Zepeda MD Primary Care Provider Allergies Active Allergy Reactions Criticality Noted Date Comments Egg Nausea And Vomiting,GI intolerance 0 05/24/2024 Morphine Wheezing 11/18/2014 Shrimp Anaphylaxis,Shortness of breath High 05/05 Medications ondansetron (ZOFRAN) 4 mg tablet TAKE 1 TABLET BY MOUTH EVERY 8 HOURS NEEDED FOR NAUSEA 12/05/19 21 Active clonazePAM (KlonoPIN) 0.5 mg tablet TAKE 1 TABLET BY MOUTH TWICE A DAY NEEDED 12/24/19 21 Active cetirizine (ZyrTEC) 10 mg tablet Take 1 tablet by mouth daily. 02/09/20 21 Active levothyroxine (SYNTHROID, LEVOTHROID) 100 mcg tablet TAKE 1 TABLET BY MOUTH EVERY DAY 05/09/19 23 Active cholecalcifer ol (VITAMIN D-3) 25 mcg (1,000 unit) tablet Take 2 Tablets by mouth daily. 12/01/19 21 Active albuterol HFA (Ventolin HFA) 90 mcg/actuation inhaler INHALE 2 PUFFS INTO THE LUNGS EVERY 6 HOURS NEEDED FOR COUGH OR WHEEZING. 09/11/19 21 Active fluticasone propionate (FLONASE) 50 mcg/actuation nasal spray SHAKE LIQUID AND USE 2 SPRAYS IN EACH NOSTRIL DAILY 06/02/19 Active EPINEPHrine (EpiPen) 0.3 mg/0.3 mL injection See Instructions, INJECT INTO MUSCLE ONCE DIRECTED, # 2 each, 0 Refills, Maintenance, 11/02/23 2:42:00 PM EDT, [facility]/pharmacy #[id number], 158, cm, 11/02/23 12:56:00 EDT, Height, 83.63, kg, 11/02/23 12:56:00 EDT, Dry Weight 11/02/19 Active acetaminophen (TYLENOL) 500 mg tablet Take 1 tablet (500 mg total) by mouth See administration instructions. every 4-6 hours as needed 02/13/20 Active esomeprazole (NexIUM) [address] capsule Take 1 capsule (40 mg total) by mouth 1 (one) time each day before breakfast. 04/09/19 25 Active folic acid (FOLVITE) 1 mg tablet Take 1 tablet (1,000 mcg total) by mouth 1 (one) time each day. Active lisinopriL (PRINIVIL,ZES TRIL) 20 mg tablet Take 1 tablet (20 mg total) by mouth 1 (one) time each day. Active methotrexate 2.5 mg tablet 1 tablet (2.5 mg total) 1 (one) time per week Active montelukast (SINGULAIR) 10 mg tablet Take 1 tablet (10 mg total) by mouth if needed. 03/13/20 Active pregabalin (LYRICA) 100 mg capsule Take 1 capsule (100 mg total) by mouth 2 (two) times a day. Active venlafaxine XR (EFFEXOR-XR) 75 mg 24 hr capsule Take 1 capsule (75 mg total) by mouth 1 (one) time each day in the morning. Active calcium carb-mag hydrox-simeth (Mylanta Tonight) 800-270-80 mg/10 mL suspension Take 15 mL by mouth 3 (three) times a day if needed (acid reflux). 355 mL 05/24/19 25 Active linaCLOtide (Linzess) 145 mcg capsule Take 1 capsule (145 mcg total) by mouth 1 (one) time each day. 30 capsule 05/24/19 25 Active bisacodyL (Dulcolax, bisacodyl,) 5 mg EC tablet Take 4 tabs by mouth right before beginning bowel prep. Follow instructions given by office for timing. 06/02/19 22 2024 Discontinued calcium carbonate (OS-SARA) 1250 mg (500 mg elemental calcium) chewable tablet CHEW 1 TABLET BY MOUTH DIRECTED 03/11/20 21 2024 Discontinued simethicone (MYLICON) 125 mg chewable tablet Take 1 tablet by mouth every 6 hours as needed for Flatulence. 10/30/19 21 2024 Discontinued docusate sodium (COLACE) 100 mg capsule Take 1 capsule by mouth 2 times daily. 10/30/19 21 2024 Discontinued suvorexant (Belsomra) 20 mg tablet Take 1 tablet by mouth at bedtime. 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 Vitamin D deficiency 10/24/2012 HTN (hypertension), benign 10/10/2012 Hypothyroid 10/10/2012 Overview (04/08/2024): Total thyroidectomy 12/04/20 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 Encounters Date Type Department Care Team Description 05/24/2024 10:40 AM EST Consult Gastroenterology - [place] [address] [facility] [address] [facility] [address] [place] [id number] Maverick Shaffer PA Heartburn (Primary Dx); Gastroesophageal reflux disease without esophagitis; Atypical chest pain; Constipation, unspecified constipation type 04/29/2024 5:31 PM EST - 04/29/2024 8:24 PM EST Emergency [facility] [address] [place] [address] Valdez Starks MD Chest wall pain (Primary Dx); Gastroesophageal reflux disease without esophagitis Discharge Disposition: Home or Self Care from Last 3 Months Immunizations Name Administration Dates Next Due Influenza Quadravalent, MDCK , 0.5ml, preservative free (Flucelvax) 6mo and older 12/15/2020,01/24/2019 Influenza Quadravalent, MDCK , 0.5ml, with preservative (Flucelvax) 6mo and older 12/07/2019,02/14/2017 Influenza trivalent, 0.5mL (Fluad) 65yo and olde r 01/15/2016,02/21/2014 Pneumococcal conjugate 13 va lent (Prevnar 13, PCV13) 2mo and older 09/10/2015 Tdap Tetanus diptheria acell ular pertussis (Boostrix; Adacel) 7yo and older 01/09/2013 Surgical History Surgery Date Site/Laterality Comments CHOLECYSTECTOMY 1996 PROCEDURE: NC CHOLECYSTECTOMY TONSILLECTOMY PROCEDURE: HISTORICAL TONSILLECTOMY SECTION PROCEDURE: HISTORICAL ; COMMENT: x3 TUBAL LIGATION PROCEDURE: HISTORICAL TUBAL LIGATION COLONOSCOPY 10/30/2015 PROCEDURE: HISTORICAL COLONOSCOPY; COMMENT: adenoma; repeat in 5 yrs OTHER SURGICAL HISTORY 10/25/2018 Left PROCEDURE: BUNION SURGERY,REMOVE JOINT/IMPLANT; COMMENT: left foot varghese karen bunionectomy OTHER SURGICAL HISTORY 12/04/2020 PROCEDURE: NC THYROIDECTOMY TOTAL/COMPLETE Medical History Medical History Date Comments Kidney stone DX:Kidney stone Sliding hiatal hernia 10/23/2020 DX:Sliding hiatal hernia; COMMENT: Small, Barium swallow 10/23/20 Dysphagia DX:Dysphagia Esophageal reflux DX:Esophageal reflux Straining with stools DX:Straini ng with stools Essential hypertension DX:Essent ial hypertension Depressive disorder DX:Depressiv e disorder Tubular adenoma 11/30/2020 DX:Tubular adeno ma Family History Medical History Relation Name Comments Esophageal cancer Brother Prostate cancer Brother Rheum arthritis Brother Other: cardiac issues Father Rheum arthritis Mother thyroid prob lems, HTN Other: Lupus Sister 1 Rheum arthritis Sister 2 Breast cancer Neg Hx Relation Name Status Comments Brother Father Alive Mother Sister 1 Sister 2 Social History Tobacco Use Types Packs/Day Years Used Date Smoking Tobacco: Every Day Cigarettes Smokeless Tobacco: Never Alcohol Use Standard Drinks/Week Comments Not Currently 0 (1 standard drink = 0.6 oz pur e alcohol) Comments Unknown Sex and Gender Information Value Date Recorded Sex Assigned at Not on file Legal Sex Female 8:58 AM EST Gender Identity Not on file Sexual Orientation Not on file Obstetrics History Last Filed Vital Signs Vital Sign Reading Time Taken Comments Blood Pressure 118/74 05/24/2024 10:56 AM EST Pulse 72 05/24/2024 10:56 AM EST Temperature 37.2 ??C (99 ??F) 04/29/2024 6:09 PM EST Respiratory Rate 16 04/29/2024 3:19 PM EST Oxygen Saturation 100% 04/29/2024 6:09 PM EST Inhaled Oxygen Concentration - - Weight 84.4 kg (186 lb) 05/24/2024 10:56 AM EST Height 157.5 cm (5' 2 ) 05/24/2024 10:56 AM EST Body Mass Index 34.02 05/24/2024 10:56 AM EST Plan of Treatment Upcoming Encounters Date Type Department Care Team (Late st Contact Info) Description 11/19/2024 1:00 PM EDT Office Visit [facility]phrology - [place] [address] [place] [phone] Seng Frenandez MD [address] [place] [address] Health Maintenance Due Date Last Done Comments Hepatitis B Vaccines (1 of 3 - 19+ 3-dose series) 1984 Pneumococcal Vaccine: 50+ Years (2 of 2 - PPSV23) 11/05/2015 09/10/2015 Pneumococcal Vaccine: Pediatrics (0 to 5 Years) and At-Risk Patients (6 to 64 Years) (2 of 2 - PPSV23) 11/05/2015 09/10/2015 Cervical Cancer Screening: Pap Smear 12/01/2017 12/01/2014, 12/01/2014 Depression Screening 03/12/2022 Medicare Annual Wellness Visit 03/12/2022 Social Influencers of Health Screening 03/12/2022 Cholesterol Screening (Lipid Panel) 06/14/2022 06/14/2017 DTaP,Tdap,and Td Vaccines (3 - Td or Tdap) 01/09/2023 01/09/2013, 04/21/2008 COVID-19 Vaccine (5 - season) 2023 07/23/2021, 01/29/2021, 07/01/2020, Additional history exists Influenza Vaccine (#1) 2023 , 12/15/2020, 12/07/2019, Additional history exists Breast Cancer Screening 03/22/2024 03/22/20, 03/18/2021, 06/18/2019, Additional history exists Hypertension/CHF/CAD Annual BMP Blood Test 04/29/2025 04/29/2024, 04/01/2021 Colorectal Cancer Screening: Colonoscopy 06/15/2026 06/15/2021 HIV Screening Completed 11/18/2014 Hepatitis C Screening Completed 01/17/2017 Zoster Vaccines Completed 09/30/2021, 07/23/2021 HIB Vaccines Aged Out No longer eligi ble based on patient's age to complete this topic HPV Vaccines Aged Out No longer eligi ble based on patient's age to complete this topic Hepatitis A Vaccines Aged Out No long er eligible based on patient's age to complete this topic IPV Vaccines Aged Out No longer eligi ble based on patient's age to complete this topic MMR Vaccines Aged Out No longer eligi ble based on patient's age to complete this topic Meningococcal ACWY Vaccine Aged Out N o longer eligible based on patient's age to complete this topic Meningococcal B Vacine Aged Out No lo nger eligible based on patient's age to complete this topic RSV Immunization Patients Under 20 months Aged Out No longer eligible based on patient's age to complete this topic Varicella Vaccines Aged Out No longer eligible based on patient's age to complete this topic Procedures Procedure Name Priority Date/Time Associated Diagnosis Comments RESPIRATORY VIRUS PANEL MOLECULAR STUDY STAT 04/29/2024 6:08 PM EST TROPONIN I HIGH SENSITIVITY STAT 04/29/2024 3:18 PM EST XR CHEST 2 VIEWS STAT 04/29/2024 2:51 PM EST CBC WITH AUTO DIFFERENTIAL STAT 04/29/2024 12:11 PM EST B-TYPE NATRIURETIC PEPTIDE STAT 04/29/2024 12:11 PM EST MAGNESIUM STAT 04/29/2024 12:11 PM EST LIPASE STAT 04/29/2024 12:11 PM EST COMPREHENSIVE METABOLIC PANEL STAT 04/29/2024 12:11 PM EST CBC AND DIFFERENTIAL STAT 04/29/2024 12:11 PM EST TROPONIN I HIGH SENSITIVITY STAT 04/29/2024 12:11 PM EST ECG 12-LEAD STAT 04/29/2024 12:00 PM EST ECG ANNOTATED 04/29/2024 SCREENING MAMMOGRAPHY BI 2-VIEW BREAST INC CAD Routine 03/22/2022 1:56 PM EST Encounter for screening mammogram for malignant neoplasm of breast COLONOSCOPY Routine 06/15/2021 LIPID PANEL Routine 06/14/2017 HEPATITIS C SCREENING Routine 01/17/2017 HPV Routine 12/01/2014 HIV SCREENING Routine 11/18/2014 from Last 3 Months or Most Recently Relevant to Health Maintenance Results * Respiratory virus panel molecular study (04/29/2024 6:08 PM EST) Adenovirus Detection by PCR Not Detected Not Detected LAB MICROBIOLOGY METHOD 04/29/2024 8:[address] [facility] Influenza A PCR Not Detected Not Detected LAB MICROBIOLOGY METHOD 04/29/2024 8:[address] [facility] Influenza B PCR Not Detected Not Detected LAB MICROBIOLOGY METHOD 04/29/2024 8:17 PM [facility] Coronavirus 229E Not Detected Not Detected LAB MICROBIOLOGY METHOD 04/29/2024 8:[address] [facility] Coronavirus HKU1 Not Detected Not Detected LAB MICROBIOLOGY METHOD 04/29/2024 8:17 PM [facility] Coronavirus OC43 Not Detected Not Detected LAB MICROBIOLOGY METHOD 04/29/2024 8:17 PM [facility] Coronavirus NL63 Not Detected Not Detected LAB MICROBIOLOGY METHOD 04/29/2024 8:17 PM [facility] Parainfluenza Virus 1 Not Detected Not Detected LAB MICROBIOLOGY METHOD 04/29/2024 8:17 PM [facility] Parainfluenza Virus 2 Not Detected Not Detected LAB MICROBIOLOGY METHOD 04/29/2024 8:17 PM [facility] Parainfluenza Virus 3 Not Detected Not Detected LAB MICROBIOLOGY METHOD 04/29/2024 8:17 PM [facility] Parainfluenza Virus 4 Not Detected Not Detected LAB MICROBIOLOGY METHOD 04/29/2024 8:17 PM [facility] RSV PCR Not Detected Not Detected LAB MICROBIOLOGY METHOD 04/29/2024 8:17 PM [facility] Human Metapneumovirus A and B Not Detected Not Detected LAB MICROBIOLOGY METHOD 04/29/2024 8:17 PM [facility] Rhinovirus/Entero virus Not Detected Not Detected LAB MICROBIOLOGY METHOD 04/29/2024 8:17 PM [facility] Bordetella pertussis Not Detected Not Detected LAB MICROBIOLOGY METHOD 04/29/2024 8:17 PM [facility] Bordetella parapertussis Not Detected Not Detected LAB MICROBIOLOGY METHOD 04/29/2024 8:17 PM [facility] Mycoplasma pneumo by PCR Not Detected Not Detected LAB MICROBIOLOGY METHOD 04/29/2024 8:17 PM [facility] Chlamydia pneumoniae Not Detected Not Detected LAB MICROBIOLOGY METHOD 04/29/2024 8:[address] [facility] SARS COV-2 Not Detected Not Detected LAB MICROBIOLOGY METHOD 04/29/2024 8:[address] [facility] Swab Nasopharyngeal structure / Unknown Non-blood Collection / Unknown 04/29/2024 6:08 PM EST 04/29/2024 7:00 PM EST [facility] - 04/29/2024 8:17 PM EST Testing was performed using the [employer] Respiratory Pathogen PCR Assay. All results must be correlated with the clinical findings. Results should not be used as the sole basis for diagnosis. False Negative results may occur from the presence of sequence variants in the region targeted by the assay or the presence of inhibitors. Results may be affected by concurrent antiviral/antimicrobial therapy or levels of organisms that are below the limit of detection. Valdez Starks MD LAB MICROBIOLOGY - [facility] Final Result [facility] [address] [place] [address], [place] [phone] * Troponin I high sensitivity (04/29/2024 3:18 PM EST) Only the most recent of2 resultswithin the time period is included. Pathologist [facility] High Sensitivity Troponin I 4 <=54 ng/L LAB CHEMISTRY METHOD 04/29/2024 3:[address] [facility] Blood Venous blood specimen / Unknown Venipuncture / Unknown 04/29/2024 3:18 PM EST 04/29/2024 3:23 PM EST [facility] - 04/29/2024 3:52 PM EST High levels of biotin in samples may falsely decrease hsTroponin values. ??Use caution when interpreting hsTroponin results in patients taking biotin who exhibit renal impairment (eGFR <60) or in patients taking more than 20 mg/day of biotin. Natalia Belle DO LAB BLOOD ORDERABLES Karmen l Result [facility] ([facility] [address] [place] [address], [place] [phone] * XR Chest 2 Views (04/29/2024 2:51 PM EST) Anatomical Region Laterality Modality Body Radiographic Naomie ging 04/29/2024 3:04 PM EST Impressions 04/29/2024 3:05 PM EST Impression: No active pulmonary process identified. No significant change. Telerad PA ([id number]) -------- FINAL REPORT -------- Dictated By: Darlin Casey Dictated Date: 04/29/2024 15:04 ET Assigned Physician: Darlin Casey Reviewed and Electronically Signed By: Darlin Casey Signed Date: 04/29/2024 15:05 ET Workstation ID: [id number] Transcribed By: Self Edit Transcribed Date: 04/29/2024 15:04 ET Narrative 04/29/2024 3:05 PM EST History: Chest pain. Comparison: 03/23/22 Findings: PA and lateral views. The cardiac silhouette is normal in size. Hilar contours and pulmonary vascularity appear normal. The lungs are clear. The costophrenic angles are sharp. Surgical clips are again seen at the base of the neck bilaterally, suggesting thyroidectomy. Cholecystectomy clips are noted. Procedure Note Darlin Casey MD - 04/29/2024 History: Chest pain. Comparison: 03/23/22 Findings: PA and lateral views. The cardiac silhouette is normal in size. Hilarcontours and pulmonary vascularity appear normal. The lungs are clear. Thecostophrenic angles are sharp. Surgical clips are again seen at the base of the neck bilaterally,suggesting thyroidectomy. Cholecystectomy clips are noted. IMPRESSION: Impression: No active pulmonary process identified. No significant change. Telerad PA ([id number]) -------- FINAL REPORT -------- Dictated By: Darlin Casey Dictated Date: 04/29/2024 15:04 ET Assigned Physician: Darlin Casey Reviewed and Electronically Signed By: Darlin Casey Signed Date: 04/29/2024 15:05 ET Workstation ID: [id number] Transcribed By: Self Edit Transcribed Date: 04/29/2024 15:04 ET us Natalia Belle DO IMG XR PROCEDURES Final R esult * (ABNORMAL) CBC auto differential (04/29/2024 12:11 PM EST) Pathologist [facility] WBC 7.5 4.8 - 10.8 K/mcL LAB HEMETOLOGY METHOD 04/29/2024 12:56 PM [facility] RBC 3.80 3.80 - 4.80 M/mcL LAB HEMETOLOGY METHOD 04/29/2024 12:56 PM [facility] Hemoglobin 12.4 11.5 - 16.0 g/dL LAB HEMETOLOGY METHOD 04/29/2024 12:56 PM [facility] Hematocrit 38.9 35.0 - 47.0 % LAB HEMETOLOGY METHOD 04/29/2024 12:56 PM [facility] MCV 101.3(H) 79.0 - 98.0 FL LAB HEMETOLOGY METHOD 04/29/2024 12:56 PM [facility] MCH 32.3(H) 27.0 - 32.0 pcg LAB HEMETOLOGY METHOD 04/29/2024 12:56 PM [facility] MCHC 31.9(L) 32.0 - 37.0 g/dL LAB HEMETOLOGY METHOD 04/29/2024 12:56 PM [facility] RDW 14.5 11.0 - 15.0 % LAB HEMETOLOGY METHOD 04/29/2024 12:56 PM [facility] Platelets 233 130 - 400 K/mcL LAB HEMETOLOGY METHOD 04/29/2024 12:56 PM EST [facility] MPV 12.4(H) 7.0 - 11.0 FL LAB HEMETOLOGY METHOD 04/29/2024 12:56 PM [facility] NRBC 0.0 <1.0 % LAB HEMETOLOGY METHOD 04/29/2024 12:56 PM [facility] NRBC Absolute 0.00 <0.10 K/mcL LAB HEMETOLOGY METHOD 04/29/2024 12:56 PM [facility] Neutrophils Relative 64.9 % LAB HEMETOLOGY METHOD 04/29/2024 12:56 PM [facility] Lymphocytes Relative 25.5 % LAB HEMETOLOGY METHOD 04/29/2024 12:56 PM [facility] Monocytes Relative 6.4 % LAB HEMETOLOGY METHOD 04/29/2024 12:56 PM [facility] Eosinophils Relative 2.3 % LAB HEMETOLOGY METHOD 04/29/2024 12:56 PM [facility] Basophils Relative 0.5 % LAB HEMETOLOGY METHOD 04/29/2024 12:56 PM [facility] Immature Granulocytes Relative 0.4 % LAB HEMETOLOGY METHOD 04/29/2024 12:56 PM [facility] Neutrophils Absolute 4.89 1.50 - 7.00 K/mcL LAB HEMETOLOGY METHOD 04/29/2024 12:56 PM [facility] Lymphocytes Absolute 1.92 1.00 - 5.00 K/mcL LAB HEMETOLOGY METHOD 04/29/2024 12:56 PM [facility] Monocytes Absolute 0.48 0.20 - 1.00 K/mcL LAB HEMETOLOGY METHOD 04/29/2024 12:56 PM [facility] Eosinophils Absolute 0.17 0.00 - 0.50 K/mcL LAB HEMETOLOGY METHOD 04/29/2024 12:56 PM [facility] Basophils Absolute 0.04 0.00 - 0.20 K/[facility] LAB HEMETOLOGY METHOD 04/29/2024 12:[address] [facility] Immature Granulocytes Absolute 0.03 0.00 - 0.03 K/[facility] LAB HEMETOLOGY METHOD 04/29/2024 12:[address] [facility] Blood Venous blood specimen / Unknown Venipuncture / Unknown 04/29/2024 12:11 PM EST 04/29/2024 12:42 PM EST us Natalia Belle LAB BLOOD ORDERABLES Karmen l Result [facility] [address] [place] [address], [place] [phone] * B-type natriuretic peptide (04/29/2024 12:11 PM EST) BNP 19 <=100 pcg/mL LAB CHEMISTRY METHOD 04/29/2024 1:[address] [facility] Blood Venous blood specimen / Unknown Venipuncture / Unknown 04/29/2024 12:11 PM EST 04/29/2024 12:41 PM EST us Natalia Belle LAB BLOOD ORDERABLES Karmen l Result [facility] [address] [place] [address], [place] [phone] * Magnesium (04/29/2024 12:11 PM EST) Magnesium 2.0 1.9 - 2.6 mg/dL LAB CHEMISTRY METHOD 04/29/2024 1:[address] [facility] Blood Venous blood specimen / Unknown Venipuncture / Unknown 04/29/2024 12:11 PM EST 04/29/2024 12:42 PM EST us Natalia Belle LAB BLOOD ORDERABLES Karmen l Result Performing Organization Address City/[facility]/ZIP Co de Phone Number [facility] [address] [place] [address], [place] [phone] * Lipase (04/29/2024 12:11 PM EST) Pathologist [facility] Lipase 49 13 - 75 unit/L LAB CHEMISTRY METHOD 04/29/2024 1:13 PM [facility] Blood Venous blood specimen / Unknown Venipuncture / Unknown 04/29/2024 12:11 PM EST 04/29/2024 12:42 PM EST [facility] LAB BLOOD ORDERABLES Karmen l Result Performing Organization Address [facility]/ZIP Co de Phone Number [facility] [address] [place] [address], [place] [phone] * Comprehensive metabolic panel (04/29/2024 12:11 PM EST) [facility] Sodium 139 133 - 145 mmol/L LAB CHEMISTRY METHOD 04/29/2024 1:13 PM [facility] Potassium 4.6 3.5 - 5.5 mmol/L LAB CHEMISTRY METHOD 04/29/2024 1:13 PM [facility] Chloride 107 96 - 110 mmol/L LAB CHEMISTRY METHOD 04/29/2024 1:13 PM [facility] CO2 28 21 - 32 mmol/L LAB CHEMISTRY METHOD 04/29/2024 1:13 PM [facility] Anion Gap 4 3 - 11 LAB CHEMISTRY METHOD 04/29/2024 1:13 PM [facility] Glucose 97 70 - 100 mg/dL LAB CHEMISTRY METHOD 04/29/2024 1:13 PM [facility] BUN 16 5 - 25 mg/dL LAB CHEMISTRY METHOD 04/29/2024 1:13 PM [facility] Creatinine 1.08 0.50 - 1.10 mg/dL LAB CHEMISTRY METHOD 04/29/2024 1:13 PM [facility] eGFR 60 >=60 mL/min/1. 73m2 LAB CHEMISTRY METHOD 04/29/2024 1:13 PM [facility] Comment:Calculation based on the??Chronic Kidney Disease Epidemiology Collaboration (CKD-EPI) equation refit??without adjustment for race. BUN/Creatinine Ratio 14.8 LAB CHEMISTRY METHOD 04/29/2024 1:13 PM [facility] Calcium 9.9 8.5 - 10.5 mg/dL LAB CHEMISTRY METHOD 04/29/2024 1:13 PM [facility] AST (SGOT) 29 10 - 42 unit/L LAB CHEMISTRY METHOD 04/29/2024 1:13 PM [facility] ALT (SGPT) 38 10 - 60 unit/L LAB CHEMISTRY METHOD 04/29/2024 1:13 PM [facility] Alkaline Phosphatase 63 42 - 121 unit/L LAB CHEMISTRY METHOD 04/29/2024 1:13 PM [facility] Total Protein 7.2 6.0 - 8.0 g/dL LAB CHEMISTRY METHOD 04/29/2024 1:13 PM [facility] Albumin 4.0 3.2 - 5.0 g/dL LAB CHEMISTRY METHOD 04/29/2024 1:13 PM [facility] Total Bilirubin 0.4 0.0 - 1.4 mg/dL LAB CHEMISTRY METHOD 04/29/2024 1:13 PM [facility] Blood Venous blood specimen / Unknown Venipuncture / Unknown 04/29/2024 12:11 PM EST 04/29/2024 12:42 PM EST us Natalia Belle DO LAB BLOOD ORDERABLES Karmen l Result [facility] [address] [place] [address], [place] [phone] * ECG 12 lead (04/29/2024 12:00 PM EST) Ventricular Rate ECG 61 BPM GEMUSE Atrial Rate 61 BPM GEMUSE P-R Interval 134 ms GEMUSE QRS Duration 68 ms GEMUSE Q-T Interval 412 ms GEMUSE QTc 414 ms GEMUSE P Wave [place] 63 degrees GEMUSE R [place] 35 degrees GEMUSE T [place] 42 degrees GEMUSE ECG Interpretation Normal sinus rhythm When compared with ECG of 12-MAY-2021 18:35, No significant change was found Confirmed by EBENEZER DEAN ([id number]) on 04/29/2024 9:20:57 PM GEMUSE 04/29/2024 12:0 0 PM EST 04/29/2024 9:20 PM EST Natalia Belle DO ECG ORDERABLES Final Res ult GEMUSE * ECG-Annotated (04/29/2024) Provider Onbase MD ECG ORDERABLES Final Result * SCREENING MAMMOGRAPHY BI 2-VIEW BREAST INC CAD (03/22/2022 1:56 PM EST) Anatomical Region Laterality Modality Radiographic Naomie ging 03/18/2021 1:22 PM EST Narrative 03/23/2022 10:51 AM EST This is a summary report. The complete report is available in the patient's medical record. If you cannot access the medical record, please contact the sending organization for a detailed fax or copy. Full field digital screening 2D and 3D mammography, reviewed with CAD and compared to previous mammograms dating back to 04/11/2018 with most recent of 03/18/2021. ??The breasts are composed of fatty and fibroglandular tissue. ??No suspicious mass, architectural distortion or suspicious calcifications are identified. IMPRESSION: : No mammographic evidence of malignancy. BIRADS 1-Negative; N. 5 year breast cancer risk assessment 0.6 % Lifetime breast cancer risk assessment 4.1 % Breast cancer risk category Low (<15%) Procedure Note Shayla Hicks MD - 05/08/2023 This is a summary report. The complete report is available in thepatient's medical record. If you cannot access the medical record, pleasecontact the sending organization for a detailed fax or copy. Full field digital screening 2D and 3D mammography, reviewed with CAD andcompared to previous mammograms dating back to 04/11/2018 with most recentof 03/18/2021. The breasts are composed of fatty and fibroglandulartissue. No suspicious mass, architectural distortion or suspiciouscalcifications are identified. IMPRESSION: : No mammographic evidence of malignancy. BIRADS 1-Negative; N. 5 year breast cancer risk assessment 0.6 % Lifetime breast cancer risk assessment 4.1 % Breast cancer risk category Low (<15%) Radiology Results Historical IMG XR PROCEDURE S Final Result * Colonoscopy (06/15/2021) [facility] Colonoscopy No interpretation , abstracted Anatomical Region Laterality Modality Other Result [facility] Provider HEALTH MAINTENANCE Final Result * Lipid panel (06/14/2017) [facility] LDL/HDL Ratio 2 0 - 4 Triglycerides 109 0 - 150 mg/dL Cholesterol 172 0 - 200 mg/dL HDL 95 >=40 mg/dL LDL Cholesterol 55 0 - 100 mg/dL Blood Venous blood specimen / Unknown Result [facility] Historical Provider LAB BLOOD ORDERABLES Karmen l Result * Hepatitis C Screening (01/17/2017) [facility] Hepatitis C Screening Abstracted Result [facility] Provider HEALTH MAINTENANCE Final Result * Cervical Cancer Screening: HPV (12/01/2014) [facility] Cervical Cancer Screening: HPV Negative, Abstracted Result [facility] Provider HEALTH MAINTENANCE Final Result * HIV Screening (11/18/2014) [facility] HIV Screening Abstracted [facility] Provider HEALTH MAINTENANCE Final Result from Last 3 Months or Most Recently Relevant to Health Maintenance Insurance [employer] MED[employer] Member Subscriber Plan / Payer (Ef fective 2023-Present) Name:Roque, Angle Relation to Subscriber:Self Name:Angle Roque Payer ID:[id number] Group ID:[id number] Type:Not on file Address: [place] [address] [place] [id number] Care Teams Cone Former Relationship Specialty Start Date End Date Sabas Zepeda MD [address] [place] [id number] PCP - General Internal Medicine 04/29/24
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
--- OUTSIDE RECORDS SUMMARY | 2024-06-05 10:34 | XMS_ITS | Patient Health Record ---
Author Organization [facility] Address [address] [place] [phone] Support Name Relationship Address Phone ASHANTI HUTTON Guarantor Unknown Reason For Referral No Information Plan Of Treatment No Information
== END 2024-06-05 10:53 | disposition home or self-care (01) ==
PROVIDERS: PCP Internal Medicine; Visit Provider Internal Medicine Rheumatology
DX: M05.79 Rheumatoid arthritis with rheumatoid factor of multiple sites without organ or systems involvement (principal); M19.011 Primary osteoarthritis, right shoulder; Z79.899 Other long term (current) drug therapy
CPT/HCPCS: 99214; G2211

== ENCOUNTER 2024-07-31 08:45 | Outpatient (RCR) | payer OTHER, SELFPAY ==
[2024-07-03 07:36] VITALS: BP 114/64; PULSE 60; RESP 16; TEMP 36.6; O2SAT 100
[2024-07-03] MEDS: ABATACEPT IV (08:19)
[2024-07-03] MEDS: MALTOSE IV (08:19)
[2024-07-03] MEDS: SODIUM CHLORIDE 0.9% IV (08:19)
[2024-07-17 08:50] VITALS: BP 122/70; PULSE 67; RESP 16; TEMP 36.6; O2SAT 99
[2024-07-17] MEDS: MALTOSE IV (09:38)
[2024-07-17] MEDS: ABATACEPT IV (09:38)
[2024-07-17] MEDS: SODIUM CHLORIDE 0.9% IV (09:38)
[2024-07-31 08:08] VITALS: BP 114/57; PULSE 66; RESP 16; TEMP 36.9; O2SAT 98
[2024-07-31] MEDS: ABATACEPT IV (09:26)
[2024-07-31] MEDS: MALTOSE IV (09:26)
[2024-07-31] MEDS: SODIUM CHLORIDE 0.9% IV (09:26)
== END 2024-07-31 10:31 | disposition home or self-care (01) ==
LOC: HO.INF 08:45
PROVIDERS: Visit Provider Internal Medicine Rheumatology
DX: M06.9 Rheumatoid arthritis, unspecified (principal)
CPT/HCPCS: 96365; J0129

== ENCOUNTER 2024-10-01 12:19 | Outpatient (REF) | payer OTHER, SELFPAY ==
[2024-10-01 14:46] LABS: Baso%MD 0.8 %; Eos%MD 4.8 %; Hematocrit 37.9 % (37.0-47.0); Hemoglobin 12.2 g/dl (12.0-16.0); IG%MD 0.3 %; Lymph%MD 33.8 %; Mean Corpuscular HGB Conc 32.2 g/dl (31.0-35.0); Mean Corpuscular Hemoglobin 31.4 pg (27.0-33.0); Mean Corpuscular Volume 97.4 fL (80.0-98.0); Mono%MD 7.3 %; NRBC Abs Auto 0.000 X10*3/uL (0.0-0.012); NRBC Pct Auto 0.0 /100WBC (0.0-0.2); Neut%MD 53.0 %; Platelet Count 252 X10*3/uL (160-400); Red Blood Count 3.89 X10*6/uL (4.20-5.50); White Blood Count 7.7 X10*3/uL (4.8-10.8)
[2024-10-01 15:35] LABS: Alanine Aminotransferase 42 U/L (0-31); Aspartate Amino Transferase 32 U/L (5-31); Estimated Glomerular Filt Rate 44
[2024-10-01 15:42] LABS: Band Neutrophils Percent 0 % (3-5); Basophils Abs Manual 0.2 X10*3/uL (0.0-0.2); Basophils Percent Manual 2 % (0-2); Eosinophils Absolute Manual 0.5 X10*3/uL (0.0-0.4); Eosinophils Percent Manual 6 % (0-4); Lymphocytes Absolute Manual 3.1 X10*3/uL (1.2-4.9); Lymphocytes Percent Manual 40 % (20-40); Monocytes Absolute Manual 0.4 X10*3/uL (0.1-1.2); Monocytes Percent Manual 5 % (2-11); Neutrophils Absolute Manual 3.6 X10*3/uL (2.0-8.3); Neutrophils Percent Manual 47 % (45-73)
[2024-10-01 15:43] LABS: RBC Morphology NORMAL
== END 2024-10-01 12:20 | disposition home or self-care (01) ==
LOC: HO.HKASLDS 12:19
PROVIDERS: PCP Internal Medicine; Visit Provider Internal Medicine Rheumatology
DX: M05.79 Rheumatoid arthritis with rheumatoid factor of multiple sites without organ or systems involvement (principal); Z79.899 Other long term (current) drug therapy
CPT/HCPCS: 36415; 82565; 84450; 84460; 85007; 85027; 85652; 86140; 99212

== ENCOUNTER 2024-10-01 12:19 | Outpatient (AMB) | payer OTHER, SELFPAY ==
--- NOTE | 2024-10-01 12:21 | A.OFFVIS_ITS ---
Vital Signs 10/01/24 12:22 Height 5 ft 2 in Weight 205 lb 0.478 oz BMI 37.5 BP 90/60 Blood Pressure Location Rt brachial Position Sitting Pulse 76 Pulse Source Pulse Oximeter Pulse Oximetry (%) 98 Oxygen Delivery Method Room Air Intake Visit Reasons: 3 Months Intake Note: Patient presents for RA follow up. Accompanied by: Self / Same As Patient Allergies morphine Allergy (Mild, Verified 10/01/24 12:21) Vomiting HPI HPI 3 Months: Details: She felt improved pain and swelling after Orencia infusion. She did not receive medication to start subcutaneous injection. She called multiple times but did not receive response. No recent infections. Morning stiffness is 30 minutes. [facility] Medical History Rheumatoid arthritis delivery delivered CKD (chronic kidney disease) Arthritis Surgical History History of tonsillectomy S/P cholecystectomy H/O thyroidectomy Family History Father Kidney disease Mother Heart attack Advanced dementia Alzheimers disease Social History Alcohol intake: current Alcohol intake frequency: holidays/special occasions only Patient Tobacco Use Status: Former Tobacco user Physical Exam Vital Signs: Last Vital Signs Pulse 76 10/01/24 12:22 BP 90/60 10/01/24 12:22 Pulse Ox 98 10/01/24 12:22 Oxygen Delivery Method Room Air 10/01/24 12:22 BMI result Body Mass Index 37.5 Const Other: General: Comfortable Skin: No lesions seen MSK: Tender right 3rd to 5th MCPs with slight synovitis present. She also has tenderness of right IP, 2nd to 5th PIP.. Synovitis of right 3rd PIP. Tender left wrist, 2nd to 5th PIP. No MTP tenderness. Normal range of motion of upper extremities. Normal range of motion of lower extremities. Assessment & Plan Assessment & Plan (1) Rheumatoid arthritis: Comment: Improved inflammatory arthritis after Orencia infusion induction dose in July. Pain is tolerable. She is more functional. She has not been able to start Orencia subcutaneous injection for maintenance. She has mild elevation in her ALT. I have reduce methotrexate dose from 25 mg once weekly to 20 mg once weekly. I will be checking labs this visit. If she continues to have mild transaminitis, I will obtain liver ultrasound with elastography for further evaluation. Rheumatology history: Seropositive (Rheumatoid factor 36). She has been on methotrexate since 01/20/2022 till present. In 2013 she did well on hydroxychloroquine, methotrexate and Humira. She has had treatment failure after reintroducing Humira. She failed course of prednisone and reports that she had side effect of weight gain. Enbrel caused severe abdominal pain 06/04/2024. Code(s): M06.9 - Rheumatoid arthritis, unspecified Category: Medical Qualifiers: Rheumatoid arthritis location: multiple sites Rheumatoid factor presence: with rheumatoid factor Qualified Code(s): M05.79 - Rheumatoid arthritis with rheumatoid factor of multiple sites without organ or systems involvement Plan: Labs for disease and drug monitoring ordered Continue methotrexate 20 mg once weekly and folic acid 1 mg daily. My staff is working on finding out why patient did not receive Orencia subcutaneous injection. I will schedule her for nurse teaching visit in 2 weeks. She will need labs for drug monitoring 4 weeks after starting Orencia: CBC, creatinine, AST, ALT Return to clinic in 3 months (2) Other termite exterminator helper (current) drug therapy: Code(s): Z79.899 - Other termite exterminator helper (current) drug therapy Category: Medical Plan: See above Orders: Orders Aspartate Amino Transferase Today Z79.899 - Other termite exterminator helper (current) drug therapy Erythrocyte Sedimentation Rate Today Z79.899 - Other assisted (current) drug therapy Complete Blood Count Man Dif Today Z79.899 - Other termite exterminator helper (current) drug therapy Alanine Aminotransferase Today Z79.899 - Other termite exterminator helper (current) drug therapy Creatinine Today Z79.899 - Other termite exterminator helper (current) drug therapy C Reactive Protein Today Z79.899 - Other assisted (current) drug therapy Medications: Changed From abatacept (Orencia ClickJect) PA needed for maintenance. First dose administered in office with nurse teaching visit. Patient needs to schedule nurse teaching visit. 125 mg subcut QWEEK 4 mL 2RF To abatacept (Orencia ClickJect) First dose administered in office with nurse teaching visit. Labs due 1 month after starting. 125 mg subcut QWEEK 4 mL 2RF Coding Level of Care Code Est Pt Level 4 (69093) Complex EM visit Add On G2211 Diagnoses Rheumatoid arthritis involving multiple sites with positive rheumatoid factor M05.79 Rheumatoid arthritis location: multiple sites Rheumatoid factor presence: with rheumatoid factor Other assisted (current) drug therapy Z79.899
[2024-10-01 12:22] VITALS: BP 90/60; PULSE 76; O2SAT 98; BMI 37.5
--- OUTSIDE RECORDS SUMMARY | 2024-10-01 13:17 | XMS_ITS | Patient Health Record ---
Author Organization [facility] Address [address] [place] [phone] Support Name Relationship Address Phone ASHANTI HUTTON Guarantor Unknown [phone] Reason For Referral No Information Plan Of Treatment No Information
--- OUTSIDE RECORDS SUMMARY | 2024-10-01 13:17 | XMS_ITS | Clinical Summary ---
Author Organization [facility] Address [address] [place] [address] Phone Care Team Providers Care Flaring Machine Operator Name Role Phone Sabas Zepeda MD Primary Care Provider Allergies Active Allergy Reactions Criticality Noted Date Comments Egg Nausea And Vomiting,GI intolerance 0 05/24/2024 Morphine Wheezing 11/18/2014 Shrimp Anaphylaxis,Shortness of breath High 05/05 Medications clonazePAM (KlonoPIN) 0.5 mg tablet TAKE 1 TABLET BY MOUTH TWICE A DAY NEEDED 1 Active cetirizine (ZyrTEC) 10 mg tablet Take 1 tablet by mouth daily. 1 Active levothyroxine (SYNTHROID, LEVOTHROID) 100 mcg tablet TAKE 1 TABLET BY MOUTH EVERY DAY 3 Active cholecalcifero l (VITAMIN D-3) 25 mcg (1,000 unit) tablet Take 2 Tablets by mouth daily. 1 Active albuterol HFA (Ventolin HFA) 90 mcg/actuation inhaler INHALE 2 PUFFS INTO THE LUNGS EVERY 6 HOURS NEEDED FOR COUGH OR WHEEZING. 1 Active fluticasone propionate (FLONASE) 50 mcg/actuation nasal spray SHAKE LIQUID AND USE 2 SPRAYS IN EACH NOSTRIL DAILY 1 Active EPINEPHrine (EpiPen) 0.3 mg/0.3 mL injection See Instructions, INJECT INTO MUSCLE ONCE DIRECTED, # 2 each, 0 Refills, Maintenance, 11/02/23 2:42:00 PM EDT, [facility]/pharmacy #[id number], 158, cm, 11/02/23 12:56:00 EDT, Height, 83.63, kg, 11/02/23 12:56:00 EDT, Dry Weight 4 Active acetaminophen (TYLENOL) 500 mg tablet Take 1 tablet (500 mg total) by mouth See administration instructions. every 4-6 hours as needed 4 Active folic acid (FOLVITE) 1 mg tablet Take 1 tablet (1,000 mcg total) by mouth 1 (one) time each day. Active lisinopriL (PRINIVIL,ZEST RIL) 20 mg tablet Take 1 tablet (20 mg total) by mouth 1 (one) time each day. Active methotrexate 2.5 mg tablet 1 tablet (2.5 mg total) 1 (one) time per week Active montelukast (SINGULAIR) 10 mg tablet Take 1 tablet (10 mg total) by mouth if needed. 4 Active pregabalin (LYRICA) 100 mg capsule Take [...] if needed (acid reflux). 355 mL 11 5 Active pantoprazole (PROTONIX) 40 mg EC tablet Take 1 tablet (40 mg total) by mouth 1 (one) time each day. Do not crush, chew, or split. 90 each 5 025 Active Additional Information Patient not taking.Reported on 07/16/2024 esomeprazole (NexIUM) [address] capsule 5 Active Active Problems Problem Noted Date Diagnosed Date Dysphagia 04/08/2024 Tubular adenoma 11/30/2020 Sliding hiatal hernia 10/23/2020 Overview (04/08/2024): Small, Barium swallow 10/23/20 Major depression in remission ([facility] V24) 03/03 Overview (04/08/2024): Seeing psychaitrist CKD (chronic kidney disease) , stage III ([facility] V24, [facility] V28) 01/29/2019 Fibromyalgia 2018 Seasonal allergic rhinitis 03/06/2018 Rheumatoid arthritis ([facility] V24, [facility] V28) 11/27/2014 Adrenal incidentaloma ([facility] V24) 12/06/2012 Vitamin D deficiency 10/24/2012 HTN (hypertension), benign 10/10/2012 Hypothyroid 10/10/2012 Overview (04/08/2024): Total thyroidectomy 12/04/20 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 Encounters Date Type Department Care Team Description 07/16/2024 10:01 AM EDT Anesthesia Event [facility] Endoscopy [address] [place] [phone] Yair Jung MD 07/16/2024 9:10 AM EDT - 07/16/2024 11:59 PM EDT Hospital Encounter [facility] Endoscopy [address] [place] [phone] Buck Al MD Steele, Matthew G, CRNA Dasilva, John E, MD Gastroesophageal reflux disease without esophagitis; Epigastric pain; Heartburn; Constipation, unspecified constipation type; Atypical chest pain Discharge Disposition: Home or Self Care 07/12/2024 Telephone Gastroenterology - [place] [address] [facility] [address] [place] [phone] Maverick Shaffer PA Med Refill from Last 3 Months Immunizations Name Administration [...] Surgery Date Site/Laterality Comments CHOLECYSTECTOMY 1996 PROCEDURE: RI CHOLECYSTECTOMY TONSILLECTOMY PROCEDURE: HISTORICAL TONSILLECTOMY SECTION PROCEDURE: HISTORICAL ; COMMENT: x3 TUBAL LIGATION PROCEDURE: HISTORICAL TUBAL LIGATION COLONOSCOPY 10/30/2015 PROCEDURE: HISTORICAL COLONOSCOPY; COMMENT: adenoma; repeat in 5 yrs OTHER SURGICAL HISTORY 10/25/2018 Left PROCEDURE: BUNION SURGERY,REMOVE JOINT/IMPLANT; COMMENT: left foot varghese karen bunionectomy OTHER SURGICAL HISTORY 12/04/2020 PROCEDURE: RI THYROIDECTOMY TOTAL/COMPLETE Medical History Medical History Date Comments Kidney stone DX:Kidney stone Sliding hiatal hernia 10/23/2020 DX:Sliding hiatal hernia; COMMENT: Small, Barium swallow 10/23/20 Dysphagia DX:Dysphagia Esophageal reflux DX:Esophageal reflux Straining with stools DX:Straini ng with stools Essential hypertension DX:Essent ial hypertension Depressive disorder DX:Depressiv e disorder Tubular adenoma 11/30/2020 DX:Tubular adeno ma Asthma Family History Medical History Relation Name Comments [...] drink = 0.6 oz pur e alcohol) Interpersonal Safety Answer Date Record ed Physical Abuse 07/16/2024 Verbal Abuse 07/16/2024 Comments Unknown Sex and Gender Information Value Date Recorded Sex Assigned at Female 07/15/2024 12:18 PM EDT Legal Sex Female 8:58 AM EST Gender Identity Female 07/15/2024 12:18 PM EDT Sexual Orientation Choose not to disclose 2024 12:18 PM EDT Obstetrics History Last Filed Vital Signs Vital Sign Reading Time Taken Comments Blood Pressure 105/62 07/16/2024 10:31 AM EDT Pulse 71 07/16/2024 10:31 AM EDT Temperature 36.2 C (97.1 F) 07/16/2024 9:52 AM EDT Respiratory Rate 19 07/16/2024 10:31 AM EDT Oxygen Saturation 100% 07/16/2024 10:31 AM EDT Inhaled Oxygen Concentration - - Weight 87.5 kg (193 lb) 07/16/2024 9:52 AM EDT Height 157.5 cm (5' 2 ) 07/16/2024 9:52 AM EDT Body Mass Index 35.3 07/16/2024 9:52 AM EDT Plan of Treatment Upcoming Encounters Date Type Department Care Team (Late st Contact Info) Description 11/19/2024 1:00 PM EDT [facility] [address] [place] [phone] Seng Fernandez MD [address] [place] [phone] 01/08/2025 1:30 PM EDT Office Visit Bariatric Surgery - [place] [address] [place] [phone] Rachelle Jimenez PA [address] [place] [address] Health Maintenance Due Date Last Done Comments [...] or Tdap) 01/09/2023 01/09/2013, 04/21/2008 COVID-19 Vaccine ( season) 2023 07/23/2021, 01/29/2021, 07/01/2020, Additional history exists Breast Cancer Screening 03/22/2024 03/22/20, 03/18/2021, 06/18/2019, Additional history exists Influenza Vaccine (Season Ended) 2024 03/10/2022, 12/15/2020, 12/07/2019, Additional history exists Hypertension/CHF/CAD Annual BMP Blood Test 04/29/2025 04/29/2024, 04/01/2021 Colorectal Cancer Screening: Colonoscopy 06/15/2026 06/15/2021, 10/30/2015 RSV Immunization Adult Patients (1 - 1-dose 75+ series) 2040 HIV Screening Completed 11/18/2014 Hepatitis C Screening [...] age to complete this topic Meningococcal B Vaccine Aged Out No l onger eligible based on patient's age to complete this topic RSV Immunization Patients Under 20 months Aged Out No longer eligible based on patient's age to complete this topic Varicella Vaccines Aged Out No longer eligible based on patient's age to complete this topic Procedures Procedure Name Priority Date/Time Associated Diagnosis Comments EGD Routine 07/16/2024 10:11 AM EDT Gastroesophageal reflux disease without esophagitis Epigastric pain Heartburn Constipation, unspecified constipation type Atypical chest pain TISSUE EXAM Routine 07/16/2024 10:08 AM EDT Gastroesophageal reflux disease without esophagitis Epigastric pain Heartburn Constipation, unspecified constipation type Atypical chest pain COMPREHENSIVE METABOLIC PANEL STAT 04/29/2024 12:11 PM EST SCREENING MAMMOGRAPHY BI 2-VIEW BREAST INC CAD Routine 03/22/2022 1:56 PM EST Encounter for screening mammogram for malignant neoplasm of breast COLONOSCOPY Routine 06/15/2021 LIPID PANEL Routine 06/14/2017 HEPATITIS C SCREENING Routine 01/17/2017 HPV Routine 12/01/2014 HIV SCREENING Routine 11/18/2014 from Last 3 Months or Most Recently Relevant to Health Maintenance Results * EGD Anesthesia - MAC; [facility] ENDOSCOPY (07/16/2024 10:11 AM EDT) Anatomical Region Laterality Modality Endoscopy 07/16/2024 10:0 2 AM EDT Impressions 07/16/2024 11:05 AM EDT - Normal examined duodenum. - Gastritis. Biopsied. - 1 cm hiatal hernia. - Normal esophagus. Recommendation: - Discharge patient to home. - Await pathology results. - Return to GI clinic as previously scheduled. Narrative 07/16/2024 11:05 AM EDT [facility] GI Patient Name: Angle Roque Procedure Date: 07/16/2024 10:02 AM Date of : 1965 Age: 59 Gender: Female Note Status: Finalized Attending MD: Buck Al MD, Procedure Date No Time: 07/16/2024 Procedure: Upper GI endoscopy Indications: New-onset upper abdominal symptoms in patient older than 50 years Providers: Buck Al MD Referring MD: Buck Al MD Medicines: Monitored Anesthesia Care Complications: No immediate complications. Estimated blood loss: Minimal. Estimated Blood Loss: Estimated blood loss was minimal. Procedure: Pre-Anesthesia Assessment: - Prior to the procedure, a History and Physical was performed, and patient medications and allergies were reviewed. The patient is competent. The risks and benefits of the procedure and the sedation options and risks were discussed with the patient. All questions were answered and informed consent was obtained. Patient identification and proposed procedure were verified by the physician, the nurse, the floorleader and the filter changing technician in the pre-procedure area in the endoscopy suite. Mental Status Examination: alert and oriented. Airway Examination: normal oropharyngeal airway and neck mobility. Respiratory Examination: clear to auscultation. CV Examination: normal. Prophylactic Antibiotics: The patient does not require prophylactic antibiotics. Prior Anticoagulants: The patient has taken no anticoagulant or antiplatelet agents. ASA Grade Assessment: II - A patient with mild systemic disease. After reviewing the risks and benefits, the patient was deemed in satisfactory condition to undergo the procedure. The anesthesia plan was to use monitored anesthesia care (MAC). Immediately prior to administration of medications, the patient was re-assessed for adequacy to receive sedatives. The heart rate, respiratory rate, oxygen saturations, blood pressure, adequacy of pulmonary ventilation, and response to care were monitored throughout the procedure. The physical status of the patient was re-assessed after the procedure. After obtaining informed consent, the endoscope was passed under direct vision. Throughout the procedure, the patient's blood pressure, pulse, and oxygen saturations were monitored continuously.The Olympus Gastroscope was introduced through the mouth, and advanced to the second part of duodenum. The upper GI endoscopy was accomplished without difficulty. The patient tolerated the procedure well. Findings: The examined duodenum was normal. Patchy mild inflammation characterized by congestion (edema) and erythema was found in the gastric body and in the gastric antrum. Biopsies were taken with a cold forceps for histology. Estimated blood loss was minimal. A 1 cm hiatal hernia was present. The esophagus was normal. Procedure Code(s): --- Professional --- 13939, Esophagogastroduodenoscopy, flexible, transoral; with biopsy, single or multiple Diagnosis Code(s): --- Professional --- K29.70, Gastritis, unspecified, without bleeding CPT copyright 2020 [employer]. All rights reserved. The codes documented in this report are preliminary and upon cooking chef review may be revised to meet current compliance requirements. Buck Al MD 07/16/2024 11:05:45 AM This report has been signed electronically.Buck Al MD Number of Addenda: 0 Note Initiated On: 07/16/2024 10:02 AM Scope In: Scope Out: Endoscopy Department at [facility] - [address] [place] [phone] Procedure Note Buck Al MD - 07/16/2024 [facility] GI Patient Name: Angle Roque Procedure Date: 07/16/2024 10:02 AM Date of : 1965 Age: 59 Gender: Female Note Status: Finalized Attending MD: Buck Al MD, Procedure Date No Time: 07/16/2024 Procedure: Upper GI endoscopy Indications: New-onset upper abdominal symptoms in patient older than 50 years Providers: Buck Al MD Referring MD: Buck Al MD Medicines: Monitored Anesthesia Care Complications: No immediate complications. Estimated blood loss: Minimal. Estimated Blood Loss: Estimated blood loss was minimal. Procedure: Pre-Anesthesia Assessment: - Prior to the procedure, a History and Physicalwas performed, and patient medications and allergieswere reviewed. The patient is competent. The risks and benefits of the procedure and the sedation optionsand risks were discussed with the patient. Allquestions were answered and informed consent was obtained. Patient identification and proposed procedure were verified by the physician, the nurse, theanesthetist and the filter changing technician in the pre-procedure area in the endoscopy suite. Mental Status Examination: alertand oriented. Airway Examination: normal oropharyngeal airway and neck mobility. Respiratory Examination: clear to auscultation. CV Examination: normal. Prophylactic Antibiotics: The patient does notrequire prophylactic antibiotics. Prior Anticoagulants: The patient has taken no anticoagulant or antiplatelet agents. ASA Grade Assessment: II - A patient withmild systemic disease. After reviewing the risks and benefits, the patient was deemed in satisfactory condition to undergo the procedure. The anesthesia plan was to use monitored anesthesia care (MAC). Immediately prior to administration of medications, the patient was re-assessed for adequacy to receive sedatives. The heart rate, respiratory rate, oxygen saturations, blood pressure, adequacy of pulmonary ventilation, and response to care were monitored throughout the procedure. The physical status ofthe patient was re-assessed after the procedure. After obtaining informed consent, the endoscope was passed under direct vision. Throughout theprocedure, the patient's blood pressure, pulse, and oxygen saturations were monitored continuously.The Olympus Gastroscope was introduced through the mouth, and advanced to the second part of duodenum. The upperGI endoscopy was accomplished without difficulty. The patient tolerated the procedure well. Findings: The examined duodenum was normal. Patchy mild inflammation characterized bycongestion (edema) and erythema was found in the gastric bodyand in the gastric antrum. Biopsies were taken with acold forceps for histology. Estimated blood loss was minimal. A 1 cm hiatal hernia was present. The esophagus was normal. Procedure Code(s): --- Professional --- 15956, Esophagogastroduodenoscopy, flexible, transoral; with biopsy, single or multiple Diagnosis Code(s): --- Professional --- K29.70, Gastritis, unspecified, without bleeding CPT copyright 2020 [employer]. All rights reserved. The codes documented in this report are preliminary and upon cooking chef reviewmay be revised to meet current compliance requirements. Buck Al MD 07/16/2024 11:05:45 AM This report has been signed electronically.Buck Al MD Number of Addenda: 0 Note Initiated On: 07/16/2024 10:02 AM Scope In: Scope Out: Endoscopy Department at [facility] - [address] [place] [phone] IMPRESSION: - Normal examined duodenum. - Gastritis. Biopsied. - 1 cm hiatal hernia. - Normal esophagus. Recommendation: - Discharge patient to home. - Await pathology results. - Return to GI clinic as previously scheduled. us Buck Al MD GI~PROCEDURE ORDERABLES Fin al Result * Tissue exam (07/16/2024 10:08 AM EDT) Final Diagnosis A. Stomach, gastric biopsy: - Gastric antral mucosa with no specific pathologic changes. - Gastric oxyntic mucosa with mild parietal cell hyperplasia as seen in PPI therapy. - No Helicobacter pylori organisms are morphologically identified. 07/17/2024 8:34 AM EDT [facility] Gross Description A. Stomach, gastric biopsy: Labeled gastric stomach . Received in formalin are two soft, dunn-pink to red tissue fragments measuring 0.35 cm and 0.45 cm in greatest diameter, which are wrapped in paper and submitted in toto in one cassette, two pieces, multiple levels. TS 07/17/2024 8:34 AM EDT [facility] Disclaimer Unless otherwise specified, all tissue is 10% NB formalin fixed and paraffin embedded. 07/17/2024 8:34 AM EDT [facility] Tissue Stomach structure / Unknown 07/16/2024 10:08 AM EDT 07/16/2024 11:00 AM EDT Buck Al MD LAB PATHOLOGY ORDERABLES Fi nal Result [facility] [address] [place] [address], * Comprehensive metabolic panel (04/29/2024 12:11 PM EST) Sodium 139 133 - 145 mmol/L LAB CHEMISTRY METHOD 04/29/2024 1:13 PM [facility] Potassium 4.6 3.5 - 5.5 mmol/L LAB CHEMISTRY METHOD 04/29/2024 1:13 PM [facility] Chloride 107 96 - 110 mmol/L LAB CHEMISTRY METHOD 04/29/2024 1:13 PM [facility] CO2 28 21 - 32 mmol/L LAB CHEMISTRY METHOD 04/29/2024 1:13 PM [facility] Anion Gap 4 3 - 11 LAB CHEMISTRY METHOD 04/29/2024 1:13 PM [facility] Glucose 97 70 - 100 mg/dL LAB CHEMISTRY METHOD 04/29/2024 1:13 PM [facility] BUN 16 5 - 25 mg/dL LAB CHEMISTRY METHOD 04/29/2024 1:13 PM [facility] Creatinine 1.08 0.50 - 1.10 mg/dL LAB CHEMISTRY METHOD 04/29/2024 1:13 PM [facility] eGFR 60 >=60 mL/min/1. 73m2 LAB CHEMISTRY METHOD 04/29/2024 1:13 PM [facility] Comment:Calculation based on the Chronic Kidney Disease Epidemiology Collaboration (CKD-EPI) equation refit without adjustment for race. BUN/Creatinine Ratio 14.8 LAB CHEMISTRY METHOD 04/29/2024 1:13 PM [facility] Calcium 9.9 8.5 - 10.5 mg/dL LAB CHEMISTRY METHOD 04/29/2024 1:13 PM [facility] AST (SGOT) 29 10 - 42 unit/L LAB CHEMISTRY METHOD 04/29/2024 1:13 PM [facility] ALT (SGPT) 38 10 - 60 unit/L LAB CHEMISTRY METHOD 04/29/2024 1:13 PM [facility] Alkaline Phosphatase 63 42 - 121 unit/L LAB CHEMISTRY METHOD 04/29/2024 1:13 PM [facility] Total Protein 7.2 6.0 - 8.0 g/dL LAB CHEMISTRY METHOD 04/29/2024 1:13 PM [facility] Albumin 4.0 3.2 - 5.0 g/dL LAB CHEMISTRY METHOD 04/29/2024 1:13 PM [facility] Total Bilirubin 0.4 0.0 - 1.4 mg/dL LAB CHEMISTRY METHOD 04/29/2024 1:13 PM [facility] Blood Venous blood specimen / Unknown Venipuncture / Unknown 04/29/2024 12:11 PM EST 04/29/2024 12:42 PM EST Natalia Belle DO LAB BLOOD ORDERABLES Karmen gonzalez Result [facility] [address] [place] [address], * SCREENING MAMMOGRAPHY BI 2-VIEW BREAST INC [...] to 04/11/2018 with most recent of 03/18/2021. The breasts are composed of fatty and fibroglandular tissue. No suspicious mass, architectural distortion or suspicious calcifications [...] % Breast cancer risk category Low (<15%) us Radiology Results Historical MD BOWEN XR PROCEDURE S Final Result * Colonoscopy (06/15/2021) Colonoscopy No interpretation , abstracted Anatomical Region Laterality Modality Other [facility] Provider HEALTH MAINTENANCE Final Result * Lipid panel (06/14/2017) [facility] LDL/HDL Ratio 2 0 - 4 Triglycerides 109 0 - 150 mg/dL Cholesterol 172 0 - 200 mg/dL HDL 95 >=40 mg/dL LDL Cholesterol 55 0 - 100 mg/dL Blood Venous blood specimen / Unknown [facility] Provider LAB BLOOD ORDERABLES Karmen l Result * Hepatitis C Screening (01/17/2017) [facility] Hepatitis C Screening Abstracted [facility] Provider HEALTH MAINTENANCE Final Result * Cervical Cancer Screening: HPV (12/01/2014) [facility] Cervical Cancer Screening: HPV Negative, Abstracted [facility] Provider HEALTH MAINTENANCE Final Result * HIV Screening (11/18/2014) [facility] HIV Screening Abstracted [facility] Provider HEALTH MAINTENANCE Final Result from Last 3 Months or Most Recently Relevant to Health Maintenance Insurance MEDICARE Member Subscriber Plan / Payer (Ef fective 2023-Present) Name:Angle Roque Relation to Subscriber:Self Name:Angle Roque Payer ID:[id number] Group ID:[id number] Type:Not on file Address: [place] [address] [address] [address] Care Teams Flaring Machine Operator Relationship Specialty Start Date End Date Sabas Zepeda MD [address] [place] [address] PCP - General Internal Medicine 04/29/24
== END 2024-10-01 13:20 | disposition home or self-care (01) ==
LOC: HO.RHES 12:19
PROVIDERS: PCP Internal Medicine; Visit Provider Internal Medicine Rheumatology
DX: M05.79 Rheumatoid arthritis with rheumatoid factor of multiple sites without organ or systems involvement (principal); Z79.899 Other long term (current) drug therapy
CPT/HCPCS: 99214; G2211

== ENCOUNTER 2024-11-04 08:12 | Outpatient (REF) | payer OTHER, SELFPAY ==
--- OUTSIDE RECORDS SUMMARY | 2024-11-04 08:17 | XMS_ITS | Clinical Summary ---
Author Organization [facility] Address [address] [place] [address] Phone Care Team Providers Care Pattern Layout Worker Name Role Phone Sabas Zepeda MD [...] 2 SPRAYS IN EACH NOSTRIL DAILY 06/02/19 21 Active EPINEPHrine (EpiPen) 0.3 mg/0.3 mL injection See Instructions, INJECT INTO MUSCLE ONCE DIRECTED, # 2 each, 0 Refills, Maintenance, 11/02/23 2:42:00 PM EDT, [facility]/pharmacy #[id number], 158, cm, 11/02/23 12:56:00 EDT, Height, 83.63, kg, 11/02/23 12:56:00 EDT, Dry Weight 11/02/19 Active acetaminophen (TYLENOL) 500 mg tablet Take 1 tablet (500 mg total) by mouth See administration instructions. every 4-6 hours as needed 02/13/20 Active folic acid (FOLVITE) 1 mg tablet [...] mg total) by mouth if needed. 03/13/20 24 Active pregabalin (LYRICA) 100 mg capsule Take [...] if needed (acid reflux). 355 mL 11 06/29/19 25 Active esomeprazole (NexIUM) [address] capsule 07/11/19 25 Active pantoprazole (PROTONIX) 40 mg EC tablet TAKE ONE TABLET BY MOUTH EVERY DAY DO NOT CRUSH, CHEW OR SPLIT ^1R4 90 tablet 1 10/15/19 25 Active pantoprazole (PROTONIX) 40 mg EC tablet Take 1 tablet (40 mg total) by mouth 1 (one) time each day. Do not crush, chew, or split. 90 each 07/15/19 25 2024 Discontinued Active Problems Problem Noted Date Diagnosed Date Dysphagia 04/08/2024 Tubular adenoma 11/30/2020 Sliding hiatal hernia 10/23/2020 Overview (04/08/2024): Small, Barium swallow 10/23/20 Major depression in remission [place] [place] 03/03 Overview (04/08/2024): Seeing psychaitrist CKD (chronic kidney disease) , stage III ([facility] [place], [facility] V28) 01/29/2019 Fibromyalgia 2018 Seasonal allergic rhinitis 03/06/2018 Rheumatoid arthritis ([facility] [place], 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 Immunizations Name Administration Dates Next Due Influenza [...] Office Visit [facility] [place] [address] [place] [phone] Seng Fernandez MD [address] [place] [phone] 01/08/2025 1:30 PM EDT Office Visit Bariatric Surgery - [place] [address] [facility] [address] [place] [phone] Rachelle Jimenez PA [address] [place], [place] [phone] 01/10/2025 2:50 PM EDT Office Visit Gastroenterology - [place] [address] [facility] [address] [facility] [address] [place] [phone] Buck Al MD [address] [facility] [address] [place], [place] [phone] Health Maintenance Due Date Last Done Comments Hepatitis B Vaccines (1 of 3 - 19+ 3-dose series) 1984 Pneumococcal Vaccine: 50+ Years (2 of 2 - PPSV23) 11/05/2015 09/10/2015 Cervical Cancer Screening: Pap Smear 12/01/2017 12/01/2014, 12/01/2014 Medicare Annual Wellness Visit 03/12/2022 Social Influencers of Health Screening 03/12/2022 Cholesterol Screening (Lipid Panel) 06/14/2022 06/14/2017 DTaP,Tdap,and Td Vaccines (3 - Td or Tdap) 01/09/2023 01/09/2013, 04/21/2008 COVID-19 Vaccine ( season) 2023 07/23/2021, 01/29/2021, 07/01/2020, Additional history exists Breast Cancer Screening 03/22/2024 03/22/20 22, 03/18/2021, 06/18/2019, Additional history exists Depression Screening 04/03/2024 Influenza Vaccine (#1) 2024 2, 12/15/2020, 12/07/2019, Additional history exists Hypertension/CHF/CAD Annual [...] Procedure Name Priority Date/Time Associated Diagnosis Comments COMPREHENSIVE METABOLIC PANEL STAT 04/29/2024 12:11 PM EST SCREENING MAMMOGRAPHY BI 2-VIEW BREAST INC CAD Routine 03/22/2022 1:56 PM EST Encounter for screening mammogram for malignant neoplasm of breast COLONOSCOPY Routine 06/15/2021 LIPID PANEL Routine 06/14/2017 HEPATITIS C SCREENING Routine 01/17/2017 HPV Routine 12/01/2014 HIV SCREENING Routine 11/18/2014 from Last 3 Months or Most Recently Relevant to Health Maintenance Results * Comprehensive metabolic panel (04/29/2024 12:11 PM EST) Sodium 139 133 - 145 mmol/L LAB CHEMISTRY METHOD 04/29/2024 1:13 PM [facility] Potassium 4.6 3.5 - 5.5 mmol/L LAB CHEMISTRY METHOD 04/29/2024 1:13 PM [facility] Chloride 107 96 - 110 mmol/L LAB CHEMISTRY METHOD 04/29/2024 1:13 PM [facility] CO2 28 21 - 32 mmol/L LAB CHEMISTRY METHOD 04/29/2024 1:13 PM [facility] Anion Gap 4 3 - 11 LAB CHEMISTRY METHOD 04/29/2024 1:13 PM [facility] Glucose 97 70 - 100 mg/dL LAB CHEMISTRY METHOD 04/29/2024 1:13 PM [facility] BUN 16 5 - 25 mg/dL LAB CHEMISTRY METHOD 04/29/2024 1:13 PM [facility] Creatinine 1.08 0.50 - 1.10 mg/dL LAB CHEMISTRY METHOD 04/29/2024 1:13 PM [facility] eGFR 60 >=60 mL/min/1. 73m2 LAB CHEMISTRY METHOD 04/29/2024 1:13 PM [facility] Comment:Calculation based on the Chronic Kidney Disease Epidemiology Collaboration (CKD-EPI) equation refit without adjustment for race. BUN/Creatinine Ratio 14.8 LAB CHEMISTRY METHOD 04/29/2024 1:13 PM [facility] Calcium 9.9 8.5 - 10.5 mg/dL LAB CHEMISTRY METHOD 04/29/2024 1:13 PM [facility] AST (SGOT) 29 10 - 42 unit/L LAB CHEMISTRY METHOD 04/29/2024 1:13 PM [facility] ALT (SGPT) 38 10 - 60 unit/L LAB CHEMISTRY METHOD 04/29/2024 1:13 PM [facility] Alkaline Phosphatase 63 42 - 121 unit/L LAB CHEMISTRY METHOD 04/29/2024 1:13 PM EST [facility] Total Protein 7.2 6.0 - 8.0 g/dL LAB CHEMISTRY METHOD 04/29/2024 1:13 PM EST [facility] Albumin 4.0 3.2 - 5.0 g/dL LAB CHEMISTRY METHOD 04/29/2024 1:13 PM EST [facility] Total Bilirubin 0.4 0.0 - 1.4 mg/dL LAB CHEMISTRY METHOD 04/29/2024 1:13 PM EST [facility] Blood Venous blood specimen / Unknown Venipuncture / Unknown 04/29/2024 12:11 PM EST 04/29/2024 12:42 PM EST us Natalia Ta Belle DO LAB BLOOD ORDERABLES Karmen l Result [facility] [address] [place] [address], * SCREENING MAMMOGRAPHY BI 2-VIEW BREAST INC [...] PROCEDURE S Final Result * Colonoscopy (06/15/2021) [facility] Colonoscopy No interpretation , abstracted Anatomical Region Laterality Modality Other Result [facility] Provider HEALTH MAINTENANCE Final Result * Lipid panel (06/14/2017) [facility] LDL/HDL Ratio 2 0 - 4 Triglycerides 109 0 - 150 mg/dL Cholesterol 172 0 - 200 mg/dL HDL 95 >=40 mg/dL LDL Cholesterol 55 0 - 100 mg/dL Blood Venous blood specimen / Unknown Result [facility] Provider LAB BLOOD ORDERABLES Karmen l Result * Hepatitis C Screening (01/17/2017) [facility] Hepatitis C Screening Abstracted Result [facility] Provider HEALTH MAINTENANCE Final Result * Cervical Cancer Screening: HPV (12/01/2014) [facility] Cervical Cancer Screening: HPV Negative, Abstracted Result [facility] Provider HEALTH MAINTENANCE Final Result * HIV Screening (11/18/2014) [facility] HIV Screening Abstracted Result [facility] Provider HEALTH MAINTENANCE Final Result from Last 3 Months or Most Recently Relevant to Health Maintenance Insurance MEDICARE Member Subscriber Plan / Payer (Ef fective 2023-Present) Name:Angle Roque Relation to Subscriber:Self Name:Angle Roque Payer ID:[id number] Group ID:[id number] Type:Not on file Address: [place] [address] [address] [place] [phone] Care Teams Pattern Layout Worker Relationship Specialty Start Date End Date Sabas Zepeda MD [address] [place] [phone] PCP - General Internal Medicine 04/29/24
--- OUTSIDE RECORDS SUMMARY | 2024-11-04 08:18 | XMS_ITS ---
Author Name [facility] Organization Unknown Care Team Organization Name Specialty Phone Email Start Date End Da ted [facility] 02/08/2022 11/20/2023
--- OUTSIDE RECORDS SUMMARY | 2024-11-04 08:18 | XMS_ITS | Patient Health Record ---
Author Organization [facility] Address [address] [place] [phone] Support Name Relationship Address Phone ASHANTI HUTTON Guarantor Unknown [phone] Reason For Referral No Information Plan Of Treatment No Information
[2024-11-04 13:42] LABS: Baso%MD 0.7 %; Eos%MD 2.7 %; Hematocrit 41.7 % (37.0-47.0); Hemoglobin 13.6 g/dl (12.0-16.0); IG%MD 0.2 %; Lymph%MD 29.2 %; Mean Corpuscular HGB Conc 32.6 g/dl (31.0-35.0); Mean Corpuscular Hemoglobin 31.6 pg (27.0-33.0); Mean Corpuscular Volume 97.0 fL (80.0-98.0); Mono%MD 6.3 %; NRBC Abs Auto 0.000 X10*3/uL (0.0-0.012); NRBC Pct Auto 0.0 /100WBC (0.0-0.2); Neut%MD 60.9 %; Platelet Count 262 X10*3/uL (160-400); Red Blood Count 4.30 X10*6/uL (4.20-5.50); White Blood Count 8.9 X10*3/uL (4.8-10.8)
[2024-11-04 13:50] LABS: Alanine Aminotransferase 42 U/L (0-31); Aspartate Amino Transferase 40 U/L (5-31); Estimated Glomerular Filt Rate 50
[2024-11-04 14:15] LABS: Basophils Abs Manual 0.2 X10*3/uL (0.0-0.2); Basophils Percent Manual 2 % (0-2); Eosinophils Absolute Manual 0.2 X10*3/uL (0.0-0.4); Eosinophils Percent Manual 2 % (0-4); Lymphocytes Absolute Manual 2.0 X10*3/uL (1.2-4.9); Lymphocytes Percent Manual 23 % (20-40); Monocytes Absolute Manual 0.4 X10*3/uL (0.1-1.2); Monocytes Percent Manual 5 % (2-11); Neutrophils Percent Manual 68 % (45-73)
[2024-11-04 14:16] LABS: Large Platelet PRESENT; RBC Morphology NORMAL
[2024-11-04 14:17] LABS: Band Neutrophils Percent 0 % (3-5); Neutrophils Absolute Manual 6.1 X10*3/uL (2.0-8.3)
== END 2024-11-04 08:13 | disposition home or self-care (01) ==
LOC: HO.HKASLDS 08:12
PROVIDERS: Visit Provider Internal Medicine Rheumatology
DX: M05.79 Rheumatoid arthritis with rheumatoid factor of multiple sites without organ or systems involvement (principal)
CPT/HCPCS: 36415; 82565; 84450; 84460; 85007; 85027; 85652; 86140

== ENCOUNTER 2024-11-20 10:19 | Outpatient (REF) | payer OTHER, SELFPAY ==
--- NOTE | ~2024-11-20 | US_ITS ---
EXAMINATION: US ABDOMEN LIMITED WITH LIVER ELASTOGRAPHY CLINICAL INFORMATION: Elevated transaminases COMPARISON: None available. TECHNIQUE: Real-time imaging of the abdominal viscera. Noninvasive ultrasound liver fibrosis assessment is performed using Buddy ElastPQ point quantification shear wave elastography (pSWE) with a 5 MHz transducer. Multiple elastography samples are obtained. FINDINGS: PANCREAS: The visualized pancreatic head and body are normal in appearance. The remainder of the pancreas is obscured from visualization by the overlying bowel gas. LIVER: The liver demonstrates normal size, contour and echogenicity. No focal lesion or intrahepatic biliary duct dilatation. The right lobe measures 12 cm in length. The left lobe measures 9 cm in length. The liver has a coarse echotexture. The main portal vein is patent with a normal direction of flow and an undulating venous waveform. Shear wave elastography provides a median stiffness of 1.3 m/s (reference: normal median stiffness is 0.81 - 1.22 m/s). The IQR/median stiffness to assess sampling precision is 0.17 (reference: optimal IQR/median stiffness is =<0.15). GALLBLADDER: The gallbladder is surgically absent. COMMON BILE DUCT: Normal in caliber measuring 0.7 cm in diameter. RIGHT KIDNEY: No hydronephrosis. No renal calculi were documented. There is an anechoic 9 mm simple renal cyst centrally.. The kidney measures 8.9 cm in maximum dimension. FREE FLUID: None documented. US/US abdomen laguna w elastography IMPRESSION: 1. Coarse liver echotexture suggests underlying diffuse hepatic parenchymal disease. 2. Elastography: Measured 1.3 m/s which is consistent with a high probability of being normal. However, study is limited by body habitus. The IQR/median measured 0.17. A value equal to or less than 0.15 confirms a good study. REFERENCE: Society of Radiologists in Ultrasound Liver Stiffness Thresholds (2020): LIVER STIFFNESS THRESHOLDS: *Liver Stiffness equal or less than 1.3 m/s: High probability of being normal. *Liver Stiffness less than 1.7 m/s: In the absence of other known clinical signs, rules out compensated advanced chronic liver disease. *Liver Stiffness 1.7-2.1 m/s: Suggestive of compensated advanced chronic liver disease but need further test for confirmation. *Liver Stiffness over 2.1 m/s: Rules in compensated advanced chronic liver disease. *Liver Stiffness over 2.4 m/s: Suggestive of clinically significant portal hypertension. QUALITY OF DATA SET: *IQR/Median value equal or less than 0.15 implies a quality data set. *IQR/Median value over 0.15 implies a poor quality data set. SIGNIFICANT CHANGE FROM PRIOR EXAM: Significant change if liver stiffness measurement is 10% or greater from prior exam. OTHER CONSIDERATIONS: The stage of liver fibrosis may be overestimated in the setting of acute hepatitis, liver inflammation, elevated liver function tests, hepatic vascular congestion, obstructive cholestasis, non-fasting state, and infiltrative diseases such as amyloidosis and lymphoma. In some patients with NAFLD, the liver stiffness thresholds for compensated advanced chronic liver disease may be lower. In causes other than viral hepatitis and NAFLD, liver stiffness thresholds are not well established. Electronically signed by: Bill Echeverria MD 11/20/2024 11:49 AM EDT
--- OUTSIDE RECORDS SUMMARY | 2024-11-20 11:33 | XMS_ITS | Patient Health Record ---
Author Organization [facility] Address [address] [place] [phone] Support Name Relationship Address Phone ASHANTI HUTTON Guarantor Unknown [phone] Reason For Referral No Information Plan Of Treatment No Information
--- OUTSIDE RECORDS SUMMARY | 2024-11-20 11:33 | XMS_ITS | Clinical Summary ---
Author Organization [facility] Address [address] [place] [address] Phone Care Team Providers Care Aircraft Cabin Cleaner Name Role Phone Sabas Zepeda MD Primary Care Provider [phone] Allergies Active Allergy Reactions Criticality Noted Date [...] FOR COUGH OR WHEEZING. 09/11/19 21 Active EPINEPHrine (EpiPen) 0.3 mg/0.3 mL [...] ^1R4 90 tablet 1 10/15/19 25 Active lisinopriL (PRINIVIL,ZES TRIL) 5 mg tablet Take 1 tablet (5 mg total) by mouth 1 (one) time each day. 11/20/19 25 Active fluticasone propionate (FLONASE) 50 mcg/actuation nasal spray SHAKE LIQUID AND USE 2 SPRAYS IN EACH NOSTRIL DAILY 06/02/19 21 2024 Discontinued lisinopriL (PRINIVIL,ZES TRIL) 20 mg tablet Take 1 tablet (20 mg total) by mouth 1 (one) time each day. 2024 Discontinued Active Problems Problem Noted Date Diagnosed Date Dysphagia 04/08/2024 Tubular adenoma 11/30/2020 Sliding hiatal hernia 10/23/2020 Overview (04/08/2024): Small, Barium swallow 10/23/20 Major depression in remission ([facility] V24) 03/03 Overview (04/08/2024): Seeing psychaitrist CKD (chronic kidney disease) , stage III ([facility] [place], [facility] V28) 01/29/2019 Fibromyalgia 2018 Seasonal allergic rhinitis 03/06/2018 Rheumatoid arthritis ([facility] [place]24, [facility] V28) 11/27/2014 Adrenal incidentaloma ([facility] V24) 12/06/2012 Vitamin D deficiency 10/24/2012 HTN (hypertension), benign 10/10/2012 Hypothyroid 10/10/2012 Overview (04/08/2024): Total thyroidectomy 12/04/20 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 Encounters Date Type Department Care Team Description 11/19/2024 1:00 PM EDT Office Visit [facility]phrology [facility] [address] [place] [address] Seng Fernandez MD Stage 3a chronic kidney disease ([facility] [place]24, [facility] V28) (Primary Dx); HTN (hypertension), benign from Last 3 Months Immunizations Name Administration [...] Surgical History Surgery Date Site/Laterality Comments CHOLECYSTECTOMY 1997 PROCEDURE: [place] CHOLECYSTECTOMY TONSILLECTOMY PROCEDURE: HISTORICAL TONSILLECTOMY SECTION PROCEDURE: HISTORICAL ; COMMENT: x3 TUBAL LIGATION PROCEDURE: HISTORICAL TUBAL LIGATION COLONOSCOPY 10/30/2015 PROCEDURE: HISTORICAL COLONOSCOPY; COMMENT: adenoma; repeat in 5 yrs OTHER SURGICAL HISTORY 10/25/2018 Left PROCEDURE: BUNION SURGERY,REMOVE JOINT/IMPLANT; COMMENT: left foot varghese karen bunionectomy OTHER SURGICAL HISTORY 12/04/2020 PROCEDURE: [place] THYROIDECTOMY TOTAL/COMPLETE Medical History Medical History Date [...] Sign Reading Time Taken Comments Blood Pressure 99/68 11/19/2024 1:06 PM EDT Pulse 67 11/19/2024 1:06 PM EDT Temperature 36.2 C (97.1 F) 07/16/2024 9:52 AM EDT Respiratory Rate 19 07/16/2024 10:3 1 AM EDT Oxygen Saturation 100% 07/16/2024 10: 31 AM EDT Inhaled Oxygen Concentration - - Weight 93.8 kg (206 lb 14.4 oz) 11/19/2024 1:06 PM EDT Height 157.5 cm (5' 2 ) 07/16/2024 9:52 AM EDT Body Mass Index 37.84 07/16/2024 9:52 AM EDT Plan of Treatment Upcoming Encounters Date Type Department Care Team (Late st Contact Info) Description 01/08/2025 1:30 PM EDT Office Visit Bariatric Surgery - [place] [address] [facility] [address] [place] [phone] Rachelle Jimenez PA [address] [place], [place] [phone] 01/10/2025 2:50 PM EDT Office Visit Gastroenterology - [place] [address] [facility] [address] [place] [phone] Buck lA MD [address] [facility] [address] [place], [place] [phone] 11/25/2025 1:00 PM EDT [facility] [address] [place] [phone] Seng Fernandez MD [address] [place] [phone] Health Maintenance Due Date Last Done Comments [...] 03/22/2024 03/22/20, 03/18/2021, 06/18/2019, Additional history exists Depression Screening 04/03/2024 Influenza Vaccine (#1) 2024 , 12/15/2020, 12/07/2019, Additional history exists Hypertension/CHF/CAD Annual BMP Blood Test 11/14/2025 11/14/2024, 04/29/2024, 04/01/2021 Colorectal Cancer Screening: Colonoscopy 06/15/2026 [...] Procedure Name Priority Date/Time Associated Diagnosis Comments MICROALBUMIN CREATININE URINE RATIO Routine 11/14/2024 12:37 PM EDT Hypertension, unspecified type Chronic kidney disease, unspecified CKD stage RENAL FUNCTION PANEL Routine 11/14/2024 12:37 PM EDT Hypertension, unspecified type Chronic kidney disease, unspecified CKD stage SCREENING MAMMOGRAPHY BI 2-VIEW BREAST INC CAD Routine 03/22/2022 1:56 PM EST Encounter for screening mammogram for malignant neoplasm of breast COLONOSCOPY Routine 06/15/2021 LIPID PANEL Routine 06/14/2017 HEPATITIS C SCREENING Routine 01/17/2017 HPV Routine 12/01/2014 HIV SCREENING Routine 11/18/2014 from Last 3 Months or Most Recently Relevant to Health Maintenance Results * Microalbumin creatinine urine ratio (11/14/2024 12:37 PM EDT) Creatinine, Urine 75.0 mg/dL LAB CHEMISTRY METHOD 11/14/2024 4:12 PM EDT [facility] Microalb, Ur <5.0 0.0 - 29.0 mg/L LAB CHEMISTRY METHOD 11/14/2024 4:12 PM EDT [facility] Microalb/Creat Ratio <7 <30 mg/g creat LAB CHEMISTRY METHOD 11/14/2024 4:12 PM EDT [facility] Urine Urine specimen obtained by clean catch procedure / Unknown Non-blood Collection / Unknown 11/14/2024 12:37 PM EDT 11/14/2024 12:37 PM EDT us Seng Fernandez MD LAB URINE ORDERABLES Final Resu lt [facility] [address] [place] [address], [place] [phone] * (ABNORMAL) Renal function panel (11/14/2024 12:37 PM EDT) Sodium 140 133 - 145 mmol/L LAB CHEMISTRY METHOD 11/14/2024 3:52 PM EDT [facility] Potassium 4.3 3.5 - 5.5 mmol/L LAB CHEMISTRY METHOD 11/14/2024 3:52 PM [facility] Chloride 108 96 - 110 mmol/L LAB CHEMISTRY METHOD 11/14/2024 3:52 PM [facility] CO2 28 21 - 32 mmol/L LAB CHEMISTRY METHOD 11/14/2024 3:52 PM [facility] Anion Gap 4 3 - 11 LAB CHEMISTRY METHOD 11/14/2024 3:52 PM [facility] Glucose 93 70 - 100 mg/dL LAB CHEMISTRY METHOD 11/14/2024 3:52 PM [facility] BUN 17 5 - 25 mg/dL LAB CHEMISTRY METHOD 11/14/2024 3:52 PM [facility] Creatinine 1.26(H) 0.50 - 1.10 mg/dL LAB CHEMISTRY METHOD 11/14/2024 3:52 PM [facility] eGFR 49(L) >=60 mL/min/1. 73m2 LAB CHEMISTRY METHOD 11/14/2024 3:52 PM [facility] Comment:Calculation based on the Chronic Kidney Disease Epidemiology Collaboration (CKD-EPI) equation refit without adjustment for race. BUN/Creatinine Ratio 13.5 LAB CHEMISTRY METHOD 11/14/2024 3:52 PM [facility] Albumin 3.9 3.2 - 5.0 g/dL LAB CHEMISTRY METHOD 11/14/2024 3:52 PM [facility] Calcium 9.4 8.5 - 10.5 mg/dL LAB CHEMISTRY METHOD 11/14/2024 3:52 PM [facility] Phosphorus 3.2 2.5 - 4.5 mg/dL LAB CHEMISTRY METHOD 11/14/2024 3:52 PM [facility] Blood Venous blood specimen / Unknown Venipuncture / Unknown 11/14/2024 12:37 PM EDT 11/14/2024 12:37 PM EDT Seng Fernandez MD LAB BLOOD ORDERABLES Final [facility]u lt [facility] [address] [place] [address], * SCREENING MAMMOGRAPHY BI 2-VIEW BREAST INC [...] category Low (<15%) us Radiology Results Historical IMG XR PROCEDURE S Final Result * Hm Colonoscopy (06/15/2021) [facility] Colonoscopy No interpretation , abstracted Anatomical Region Laterality Modality Other Historical Provider HEALTH MAINTENANCE Final Result * Lipid panel (06/14/2017) [facility] LDL/HDL Ratio 2 0 - 4 Triglycerides 109 0 - 150 mg/dL Cholesterol 172 0 - 200 mg/dL HDL 95 >=40 mg/dL LDL Cholesterol 55 0 - 100 mg/dL Blood Venous blood specimen / Unknown [facility] Provider LAB BLOOD ORDERABLES Karmen l Result * Hepatitis C Screening (01/17/2017) [facility] Hepatitis C Screening Abstracted [facility] Provider HEALTH MAINTENANCE Final Result * Cervical Cancer Screening: HPV (12/01/2014) [facility] Cervical Cancer Screening: HPV Negative, Abstracted [facility] Provider HEALTH MAINTENANCE Final Result * HIV Screening (11/18/2014) [facility] HIV Screening Abstracted [facility] Provider HEALTH MAINTENANCE Final Result from Last 3 Months or Most Recently Relevant to Health Maintenance Insurance [employer] Member Subscriber Plan / Payer (Ef fective 2023-Present) Name:ANGLE HUTTON Relation to Subscriber:Self Name:Angle Hutton Payer ID:[id number] Group ID:[id number] Type:Not on file Address: [place] [address] [address] [place] [phone] Care Teams Aircraft Cabin Cleaner Relationship Specialty Start Date End Date Sabas Zepeda MD [address] [place] [phone] PCP - General Internal Medicine 04/29/24
== END 2024-11-20 10:20 | disposition home or self-care (01) ==
LOC: HO.US 10:19
PROVIDERS: PCP Internal Medicine; Visit Provider Internal Medicine Rheumatology
DX: R74.01 Elevation of levels of liver transaminase levels (principal)
CPT/HCPCS: 76705; 76981

== ENCOUNTER → 2024-11-20 11:30 | Outpatient (BNV) | payer OTHER, SELFPAY | PROVIDERS: PCP Internal Medicine; Visit Provider Radiology Diagnostic Radiology | DX: R74.01 Elevation of levels of liver transaminase levels (principal) | CPT/HCPCS: 76705 ==

== ENCOUNTER 2024-12-09 09:50 | Outpatient (REF) | payer OTHER, SELFPAY ==
--- OUTSIDE RECORDS SUMMARY | 2024-12-09 11:26 | XMS_ITS | Patient Health Record ---
Author Organization [facility] Address [address] [place] [phone] Support Name Relationship Address Phone ASHANTI HUTTON Guarantor Unknown Reason For Referral No Information Plan Of Treatment No Information
--- OUTSIDE RECORDS SUMMARY | 2024-12-09 11:26 | XMS_ITS | Clinical Summary ---
Author Organization [facility] Address [address] [place] [address] Phone Care Team Providers Care Loom Operator Name Role Phone Sabas Zepeda MD [...] Barium swallow 10/23/20 Major depression in remission ([facility] V24) 03/03 Overview (04/08/2024): Seeing psychaitrist CKD (chronic kidney disease) , stage III ([facility] V24, [facility] V28) 01/29/2019 Fibromyalgia 2018 Seasonal allergic rhinitis 03/06/2018 Rheumatoid arthritis ([facility] V24, 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 Encounters Date Type Department Care Team Description 11/19/2024 1:00 PM EDT Office Visit Nephrology - [facility] [address] [place] [address] Seng Fernandez MD Stage 3a chronic kidney disease ([facility] V24, [facility] V28) (Primary Dx); HTN (hypertension), benign from [...] Surgery Date Site/Laterality Comments CHOLECYSTECTOMY 1997 PROCEDURE: AR CHOLECYSTECTOMY TONSILLECTOMY PROCEDURE: HISTORICAL TONSILLECTOMY SECTION PROCEDURE: HISTORICAL ; COMMENT: x3 TUBAL LIGATION PROCEDURE: HISTORICAL TUBAL LIGATION COLONOSCOPY 10/30/2015 PROCEDURE: HISTORICAL COLONOSCOPY; COMMENT: adenoma; repeat in 5 yrs OTHER SURGICAL HISTORY 10/25/2018 Left PROCEDURE: BUNION SURGERY,REMOVE JOINT/IMPLANT; COMMENT: left foot varghese karen bunionectomy OTHER SURGICAL HISTORY 12/04/2020 PROCEDURE: AR THYROIDECTOMY TOTAL/COMPLETE Medical History Medical History Date [...] PM EDT Office Visit Bariatric Surgery - [place] [address] [place] [phone] Rachelle Jimenez PA [address] [place] [phone] 01/10/2025 2:50 PM EDT Office Visit Gastroenterology - [place] [address] [facility] [address] [place] [phone] Buck Al MD [address] [place] [phone] 11/25/2025 1:00 PM EDT [facility] [address] [place] [phone] Seng Fernandez MD [address] [place] [phone] Health Maintenance Due Date Last Done Comments [...] - Td or Tdap) 01/09/2023 01/09/2013, 04/21/2008 Breast Cancer Screening 03/22/2024 03/22/20, 03/18/2021, 06/18/2019, Additional history exists Depression Screening 04/03/2024 COVID-19 Vaccine ( season) 2024 07/23/2021, 01/29/2021, 07/01/2020, Additional history exists Influenza Vaccine (#1) 2024 , 12/15/2020, 12/07/2019, [...] LAB CHEMISTRY METHOD 11/14/2024 4:12 PM EDT [facility] Microalb, Ur <5.0 0.0 - 29.0 mg/L LAB CHEMISTRY METHOD 11/14/2024 4:12 PM EDT [facility] Microalb/Creat Ratio <7 <30 mg/g creat LAB CHEMISTRY METHOD 11/14/2024 4:12 PM EDT [facility] Urine Urine specimen obtained by clean catch procedure / Unknown Non-blood Collection / Unknown 11/14/2024 12:37 PM EDT 11/14/2024 12:37 PM EDT us Seng Fernandez MD LAB URINE ORDERABLES Final Resu lt [facility] [address] [place] [address], [place] [phone] * (ABNORMAL) Renal function panel (11/14/2024 12:37 PM EDT) Sodium 140 133 - 145 mmol/L LAB CHEMISTRY METHOD 11/14/2024 3:52 PM EDT [facility] Potassium 4.3 3.5 - 5.5 mmol/L LAB CHEMISTRY METHOD 11/14/2024 3:[address] [facility] Chloride 108 96 - 110 mmol/L LAB CHEMISTRY METHOD 11/14/2024 3:[address] [facility] CO2 28 21 - 32 mmol/L LAB CHEMISTRY METHOD 11/14/2024 3:[address] [facility] Anion Gap 4 3 - 11 LAB CHEMISTRY METHOD 11/14/2024 3:[address] [facility] Glucose 93 70 - 100 mg/dL LAB CHEMISTRY METHOD 11/14/2024 3:[address] [facility] BUN 17 5 - 25 mg/dL LAB CHEMISTRY METHOD 11/14/2024 3:[address] [facility] Creatinine 1.26(H) 0.50 - 1.10 mg/dL LAB CHEMISTRY METHOD 11/14/2024 3:[address] [facility] eGFR 49(L) >=60 mL/min/1. 73m2 LAB CHEMISTRY METHOD 11/14/2024 3:[address] [facility] Comment:Calculation based on the Chronic Kidney Disease Epidemiology Collaboration (CKD-EPI) equation refit without adjustment for race. BUN/Creatinine Ratio 13.5 LAB CHEMISTRY METHOD 11/14/2024 3:[address] [facility] Albumin 3.9 3.2 - 5.0 g/dL LAB CHEMISTRY METHOD 11/14/2024 3:[address] [facility] Calcium 9.4 8.5 - 10.5 mg/dL LAB CHEMISTRY METHOD 11/14/2024 3:[address] [facility] Phosphorus 3.2 2.5 - 4.5 mg/dL LAB CHEMISTRY METHOD 11/14/2024 3:[address] [facility] Blood Venous blood specimen / Unknown Venipuncture / Unknown 11/14/2024 12:37 PM EDT 11/14/2024 12:37 PM EDT Seng Fernandez MD LAB BLOOD ORDERABLES Final Resu lt [facility] [address] [place] [address], * SCREENING MAMMOGRAPHY BI 2-VIEW BREAST INC [...] S Final Result * Hm Colonoscopy (06/15/2021) [facility] Colonoscopy No interpretation , abstracted Anatomical Region Laterality Modality Other Historical Provider HEALTH MAINTENANCE Final Result * Lipid panel (06/14/2017) [facility] LDL/HDL Ratio 2 0 - 4 Triglycerides 109 0 - 150 mg/dL Cholesterol 172 0 - 200 mg/dL HDL 95 >=40 mg/dL LDL Cholesterol 55 0 - 100 mg/dL Blood Venous blood specimen / Unknown [facility] Provider LAB BLOOD ORDERABLES Karmen l Result * Hepatitis C Screening (01/17/2017) [facility] Hepatitis C Screening Abstracted [facility] Provider HEALTH MAINTENANCE Final Result * Cervical Cancer Screening: HPV (12/01/2014) [facility] Cervical Cancer Screening: HPV Negative, Abstracted [facility] Provider HEALTH MAINTENANCE Final Result * HIV Screening (11/18/2014) [facility] HIV Screening Abstracted [facility] Provider HEALTH MAINTENANCE Final Result from Last 3 Months or Most Recently Relevant to Health Maintenance Insurance [employer] Member Subscriber Plan / Payer (Ef fective 2023-Present) Name:ANGLE HUTTON Relation to Subscriber:Self Name:Angle Hutton Payer ID:[id number] Group ID:[id number] Type:Not on file Address: [place] [address] [address] [address] Care Teams Loom Operator Relationship Specialty Start Date End Date Sabas Zepeda MD [address] [place] [id number] PCP - General Internal Medicine 04/29/24
[2024-12-09 14:34] LABS: Alanine Aminotransferase 30 U/L (0-31); Aspartate Amino Transferase 32 U/L (5-31); Estimated Glomerular Filt Rate 50
== END 2024-12-09 09:51 | disposition home or self-care (01) ==
LOC: HO.HKASLDS 09:50
PROVIDERS: Visit Provider Internal Medicine Rheumatology
DX: M05.79 Rheumatoid arthritis with rheumatoid factor of multiple sites without organ or systems involvement (principal); N28.9 Disorder of kidney and ureter, unspecified; Z79.899 Other long term (current) drug therapy
CPT/HCPCS: 36415; 82565; 84450; 84460; 85652; 86140